=== PATIENT | male | born 1995 | race Caucasian/White ===

== ENCOUNTER 2017-06-28 10:18 | Emergency (ER) | payer SELFPAY ==
[2017-06-28 10:19] VITALS: BP 149/92; PULSE 90; RESP 18; TEMP 36.4; O2SAT 99; BMI 32.1
[2017-06-28] MEDS: Tetracaine 0.5% Ophthalmic Bottle 1 DRP LEFT EYE (10:41)
--- NOTE | 2017-06-28 10:43 | ED.DCSUM_ITS ---
- ER Visit Summary Date of Service: 06/28/17 Chief Complaint: [Foreign body sensation left eye] History of Present Illness: The patient is a 21 M [presents to the emergency department with complaint of possible foreign body sensation left eye. Patient states that while at work yesterday was given some pine straw out of the truck when he thinks he may have gotten something in his left eye. Patient irrigated the eye at home had a lot of discomfort and focal photophobia. Patient denies any headache. Patient does not want to file this under workman's comp.] Physical Examination: [HEENT-PERRLA, EOMI. Cranial nerves II through XII grossly intact. TMs clear. Mucous membranes moist. No adenopathy. Patient does have some conjunctival erythema of the left eye. I everted both eyelids and no foreign bodies were noted. I do not have floor seen available in the emergency department therefore could not evaluate for corneal abrasion. Anterior chamber was normal. Cardiovascular-regular rate and rhythm without murmur or ectopy Lungs-clear to auscultation, chest wall stable without crepitus or subcu emphysema Abdomen-normoactive bowel sounds, soft, nontender, no rebound or rigidity, no peritoneal signs. Extremities-intact ?4, normal range of motion, normal pulses, atraumatic] Test Results: [None indicated] Emergency Department Course and Treatment: [Patient had tetracaine placed in the left eye and gentamicin ophthalmic drops.] Treatment Plan: [Case was discussed with Dr. Martinez who will see patient in the office this afternoon.] Disposition: [Discharged home in stable condition] Impression: [Foreign body sensation left eye] This note was generated with [employer] dictation software. It may contain incorrect words, spelling, and punctuation that were not noted in review of the chart prior to signing ED Disposition - Plan for ED Patient: Chief Complaint: Eye Problem Referrals: Velasquez Zavala MD [Primary Care Provider] -
--- NOTE | 2017-06-28 10:44 | ED.DEP ---
ED Disposition - Plan for ED Patient: Chief Complaint: Eye Problem Instructions: ED Eye Injury Corneal Abrasion Referrals: Velasquez Zavala MD [Primary Care Provider] - Ko Martinez MD [STAFF PHYSICIAN] - 1 Day
--- NOTE | 2017-06-28 10:56 | ED.RN ---
1030-Patient states injury to eye happened while at work but declines to file Workman's Compensation.
[2017-06-28] MEDS: Gentamicin Sulfate 1 OPTH.BTL 2 DRP LEFT EYE (11:03)
== END 2017-06-28 11:08 | disposition home or self-care (01) ==
PROVIDERS: Emergency Provider Emergency Medicine; Family Provider Family Medicine; PCP Family Medicine
DX: R20.8 Other disturbances of skin sensation (principal); J45.909 Unspecified asthma, uncomplicated; Z72.0 Tobacco use
CPT/HCPCS: 99283

== ENCOUNTER 2017-08-08 20:53 | Emergency (ER) | payer SELFPAY ==
[2017-08-08 20:55] VITALS: BP 154/84; PULSE 96; RESP 18; TEMP 36.1; O2SAT 98; BMI 35.7
--- NOTE | 2017-08-08 21:35 | RAD_ITS ---
STUDY: X-RAY - RIGHT FOOT CLINICAL: Male, 21 years old. Pain TECHNIQUE: 3 view(s) of the foot. COMPARISON: None. FINDINGS: Normal talus, calcaneus, and tarsal bones. Normal visualized subtalar, talonavicular, calcaneocuboid, tarsal and tarsometatarsal articulations. Normal metatarsi. Normal metatarsophalangeal joint of the great toe. Normal tibial and fibular sesamoid bones. Normal interphalangeal joint of the great toe. Normal phalanges of the great toe. Normal second through fifth metatarsophalangeal joints. Normal interphalangeal joints and phalanges of the lesser toes. The soft tissue structures are unremarkable. RAD/Foot min 3 Views IMPRESSION: Normal x-ray examination of the foot. Electronically Signed: Francisco Javier Raymond MD at 21:49 EDT Tel , Service support ,
--- NOTE | 2017-08-08 22:57 | ED.DCSUM_ITS ---
- ER Visit Summary Date of Service: 08/08/17 Chief Complaint: Right foot pain History of Present Illness: The patient is a 21 M who has a history of sleep apnea asthma and fibromyalgia. He states that about 1-1-1/2 weeks ago began have pain on the dorsum of his right foot. States he has tried elevating it icing it using Epson salt. States has been taking ibuprofen and naproxen. States now this is helped his pain. Notes pain when he pulls his toes back towards his head. He notes no swelling or redness. No known trauma. Physical Examination: Afebrile vital signs are stable Gen: Well-nourished well-developed Head: Normocephalic atraumatic Eyes: Perrl EOMI ENT: TMs clear no rhinorrhea moist mucous membranes Neck: Supple no lymphadenopathy no JVD nontender CVS: Regular rate rhythm no murmurs normal S1-S2 Respiratory: No distress clear to auscultation bilaterally chest nontender Abdomen: Soft nontender nondistended normal bowel sounds no masses Back: Nontender Extremity: Tender to palpation over the dorsum of the right foot. There is no redness. No swelling. No bruising. Skin: Normal color no rash Neuro: alert orientated ?3 CN II-XII intact normal strength sensation reflexes gait cerebellar Psych: Normal affect normal mood Test Results: X-rays were negative. Emergency Department Course and Treatment: The patient will use an Lukas wrap. We will treat with ibuprofen and prednisone. See follow-up either with his primary care doctor or with podiatry Impression: 1. Right foot tendinitis This note was generated with [employer] dictation software. It may contain incorrect words, spelling, and punctuation that were not noted in review of the chart prior to signing ED Disposition - Plan for ED Patient: Disposition: Home or Assisted Living Chief Complaint: Lower Extremity Injury Instructions: What Is Tendinitis of the Foot? Prescriptions: Ibuprofen [Motrin] 800 mg PO TID PRN PRN #20 tab PRN Reason: Pain Prednisone [Deltasone] 60 mg PO DAILY #12 tab Referrals: Velasquez Zavala MD [Primary Care Provider] - 3-5 Days if not improving Sukhi Lay DPM [STAFF PHYSICIAN] - 3-5 Days
[2017-08-08 23:25] LABS: Bedside Glucose 86 mg/dL (70-110)
[2017-08-08] MEDS: predniSONE 20 MG Tablet 60 MG PO (23:28)
[2017-08-08 23:29] VITALS: BP 131/83; PULSE 83; RESP 16; O2SAT 96
== END 2017-08-08 23:29 | disposition home or self-care (01) ==
PROVIDERS: Emergency Provider Emergency Medicine; Family Provider Family Medicine; PCP Family Medicine
DX: M77.51 Other enthesopathy of right foot and ankle (principal); J45.909 Unspecified asthma, uncomplicated; M79.7 Fibromyalgia; G47.30 Sleep apnea, unspecified
CPT/HCPCS: 73630; 82962; 99282

== ENCOUNTER 2017-09-10 12:17 | Emergency (ER) | payer SELFPAY ==
--- NOTE | 2017-09-10 12:17 | DT_ITS ---
This patient was seen during an EMR downtime September 05, 2017 - September 12, 2017. This patient may have a combination of paper and electronic documentation or all paper documentation. All documentation is viewable within the e-chart portion of [employer] for each patient visit.
--- NOTE | 2017-09-10 13:28 | CT_ITS ---
STUDY: CT ABDOMEN AND PELVIS WITHOUT CONTRAST REASON FOR EXAM: Male, 21 years old. Left lower quadrant and testicular pain RADIATION DOSAGE (If Supplied By Facility): CTDIvol = ( 19.40 ) mGy, DLP = ( 1373.20 ) mGycm TECHNIQUE: Transaxial images were obtained from the dome of the diaphragm to the symphysis pubis without oral contrast, and without intravenous contrast. Sagittal and coronal images were reconstructed. Individualized dose optimization techniques were used for this CT. COMPARISON: None. FINDINGS: Lung bases demonstrate no evidence for consolidative process. Liver appears unremarkable. Spleen measures approximately 13 cm in craniocaudal dimension suggestive of mild splenomegaly. Gallbladder is nondistended. Fatty infiltration of the pancreas. The adrenal glands appear unremarkable. Kidneys demonstrate no evidence for hydronephrosis. The bowel gas pattern is nonobstructive. No evidence for retroperitoneal or mesenteric adenopathy. No definite evidence for acute appendicitis. A few prominent lymph nodes in the right lower quadrant seen. Fecal loading of the colonic loops. No free air within the peritoneal cavity. No free fluid in the pelvis. Osseous structures demonstrate no evidence for acute fractures. No lytic or blastic lesions. Schmorl's nodes in the thoracic and lumbar spine. IMPRESSION: No evidence for obstructive uropathy. No evidence for acute appendicitis. No evidence for acute diverticulitis. No evidence for small bowel obstruction. Mild splenomegaly Electronically Signed: Jose Horan, at 13:57 EDT Tel , Service support , CT/Abdomen/Pelvis without Cont
--- NOTE | 2017-09-10 13:50 | US_ITS ---
STUDY: SCROTUM ULTRASOUND REASON FOR EXAM: Male, 21 years old. Pain. TECHNIQUE: Ultrasound evaluation of the scrotum was performed with color Doppler and static avila-scale imaging. COMPARISON: None. FINDINGS: RIGHT TESTICLE INTRATESTICULAR: There is a normal size of the right testicle. The right testicle measures 3.9 x 3.1 x 2.1 cm. There is a homogenous echotexture. There is normal arterial and normal venous vascularity. There is no demonstrated right testicular mass or cyst. EXTRATESTICULAR: The epididymis is normal in size. The epididymis head measures 1.2 cm. There is normal vascularity of the epididymis. There is no demonstrated epididymal cystic structure. There is no demonstrated hydrocele. There is no demonstrated varicocele. There is no demonstrated extratesticular mass or cyst. LEFT TESTICLE INTRATESTICULAR: There is a normal size of the left testicle. The left testicle measures 2.8 x 4.1 x 2.2 cm. There is a homogenous echotexture. There is normal arterial and normal venous vascularity. There is no demonstrated left testicular mass or cyst. EXTRATESTICULAR: The epididymis is enlarged. The epididymis head measures 2.0 cm. There is normal vascularity of the epididymis. There is no demonstrated epididymal cystic structure. There is no demonstrated hydrocele. There are prominent extratesticular veins consistent with a varicocele. There is no demonstrated extratesticular mass or cyst. US/Testicular with Arterial Flow IMPRESSION: Normal bilateral testicles. Mildly enlarged left epididymis which is otherwise negative. Small left varicocele. Electronically Signed: Carlos Eduardo Houser MD at 14:24 EDT , Service support ,
[2017-09-13 06:49] LABS: Bacteria 0 SEEN /hpf (None Seen); Mucous, Urine 0 SEEN /hpf (<or=2+); Red Blood Cells-Urine 0 SEEN /hpf (0-5); Squamous Epithelial Cells - UA 0 SEEN /hpf (0-5); White Blood Cells 0 SEEN /hpf (0-5)
[2017-09-13 07:14] LABS: Color, Urine Yellow (Yellow); Glucose, Dipstick NEGATIVE (Normal); Ketone-Dipstick Negative (Negative); Leukocyte Esterase-Dipstick Negative /ul (Negative); Nitrite-Dipstick Negative (Negative); Occult Blood-Urine 10 /ul (Negative); Protein-Dipstick Negative (Negative); Urine Bilirubin Dipstick Negative (Negative); Urine Clarity Clear (Clear); Urine Urobilinogen Normal (Normal)
[2017-09-13 09:39] LABS: Anion Gap 6 (5-15); BUN 14 mg/dL (7-18); BUN/Creat Ratio 14.3 RATIO (10-20); Calcium,Total 8.9 mg/dL (8.5-10.1); Chloride 102 mmol/L (98-107); Creatinine, Serum 0.98 mg/dL (0.70-1.30); EST Glomerular Filtration Rate 101 mL/min (>60); Est Glom Filt Rate - Afr Amer 122 mL/min (>60); Glucose 115 mg/dL (74-106); Potassium 4.1 mmol/L (3.5-5.1); Sodium Level 139 mmol/L (136-145)
[2017-09-13 21:13] LABS: Hematocrit 46.3 % (40-54); Hemoglobin 16.3 g/dl (13.0-16.5); Mean Corp Hgb Conc 35.2 g/gl (32-36); Mean Corpuscular Hgb 28.7 pg (27.0-32.0); Mean Corpuscular Volume 81.7 fL (80-94); RBC Distribution Width CV 12.6 % (11.6-14.6); RBC Distribution Width SD 37.3 fl (35.1-43.9); Red Blood Count 5.67 M/mm3 (4.6-6.2); White Blood Count 6.4 K/mm3 (4.4-11.0)
[2017-09-13 21:14] LABS: Absolute Lymphocyte Count 1.27 X10^3/ul (0.83-4.51); Absolute Neutrophil Count 4.5 X10^3/uL (2.0-7.7); Basophil# 0.01 X10^3/uL; Basophil% 0.2 % (0-1); Eosinophil# 0.06 X10^3/uL; Eosinophils% 0.9 % (0-5); Lymphocyte # 1.27 X10^3/ul (4.0); Mean Platelet Vol. 8.8 fl (6.2-12.0); Monocyte# 0.54 X10^3/uL; Monocyte% 8.5 % (0-10); Neutrophil # 4.48 X10^3/uL (2.7-7.7); Neutrophil % 70.4 % (47-70); POSITIVE COUNT NO; POSITIVE DIFFERENTIAL NO; POSITIVE MORPHOLOGY NO; Platelet Count 190 K/mm3 (150-450)
== END 2017-09-10 14:50 | disposition home or self-care (01) ==
LOC: ED 09-11 13:19
PROVIDERS: Emergency Provider Emergency Medicine; Family Provider Family Medicine; PCP Family Medicine
DX: N45.2 Orchitis (principal); J45.909 Unspecified asthma, uncomplicated
CPT/HCPCS: 36415; 74176; 76870; 80048; 81001; 85025; 93976; 96374; 96375; 99283; J2405

== ENCOUNTER 2018-09-29 13:57 | Emergency (ER) | payer BC, SELFPAY ==
[2018-09-29 13:58] VITALS: BP 128/83; PULSE 104; RESP 15; TEMP 36.7; O2SAT 98; BMI 35.8
[2018-09-29] MEDS: Ketorolac 60 MG/2 ML Vial IM (15:17)
--- NOTE | 2018-09-29 15:20 | RAD_ITS ---
STUDY: X-RAY - PELVIS AND LEFT HIP REASON FOR EXAM: Left hip pain while playing softball 2 days ago. TECHNIQUE: 2 views of the pelvis and hip. COMPARISON: None. FINDINGS: There is a small pelvic phlebolith. Normal bilateral iliac wings, sacroiliac joints and visualized sacrum. Normal bilateral superior and inferior pubic rami. Normal pubic symphysis. Normal bilateral ischial tuberosities. Normal visualized femoral head. Normal acetabulum. Normal hip joint. RAD/HIP, UNI W/ Pelvis 2-3 Views IMPRESSION: Normal x-ray examination of the pelvis and left hip. Electronically Signed: Rex Vyas MD at 15:45 EDT Tel , Service support ,
--- NOTE | 2018-09-29 17:03 | ED.DCSUM_ITS ---
- ER Visit Summary Date of Service: 09/29/18 Chief Complaint: Left hip pain History of Present Illness: The patient is a 22 M who presents with left hip pain that began while playing softball 2 days ago. Patient states he felt a pop while running. Patient states the pain is sharp. Patient states the pain is constant. Patient states the pain is worse with laying flat and with weightbearing. Patient denies any paresthesias or weakness. Patient states the pain does radiate down his leg. Patient denies any paresthesias or weakness. Patient denies any bowel or bladder changes. Physical Examination: Vital signs are stable. Patient is afebrile. Patient is in no acute distress. Musculoskeletal exam reveals tenderness over the posterior aspect of the left hip. There is no bony crepitance or step-off. Range of motion is limited in all motions of the left hip secondary to pain. Sensation was intact to light touch in all dermatomes of the lower extremities. Strength is 5/5 bilateral and lower extremities. There is no deformity noted. The remaining physical exam is within normal limits. Test Results: X-rays of the left hip were obtained. There is no acute fracture or dislocation. Emergency Department Course and Treatment: Patient was advised that this is most likely a muscular strain. Patient was given an injection of Toradol here. Patient was given a prescription for Naprosyn. Patient was instructed to use ice to the area. Patient was instructed to follow-up with his primary care physician in 5 to 7 days. Patient understood and was agreeable with the plan. All questions were answered. Disposition: Discharge home Impression: Muscle strain left hip This note was generated with [employer] dictation software. It may contain incorrect words, spelling, and punctuation that were not noted in review of the chart prior to signing ED Disposition - Plan for ED Patient: Disposition: Home or Assisted Living Diagnosis: Muscle strain of left hip Instructions: Hip Strain Prescriptions: Naproxen [Naprosyn] 500 mg PO BID PRN #20 tab Prescription Printed Referrals: Velasquez Zavala MD [Primary Care Provider] - 5-7 Days
== END 2018-09-29 17:27 | disposition home or self-care (01) ==
PROVIDERS: Emergency Provider Emergency Medicine; Family Provider Family Medicine; PCP Family Medicine
DX: S76.012A Strain of muscle, fascia and tendon of left hip, initial encounter (principal); Y93.64 Activity, baseball; X50.1XXA Overexertion from prolonged static or awkward postures, initial encounter; Y93.02 Activity, running; Y92.320 Baseball field as the place of occurrence of the external cause; Y99.8 Other external cause status; Z72.0 Tobacco use
CPT/HCPCS: 73502; 96372; 99282

== ENCOUNTER 2019-08-21 18:20 | Emergency (ER) | payer OTHER, SELFPAY ==
[2019-08-21 18:21] VITALS: BP 158/95; PULSE 92; RESP 18; TEMP 36.3; O2SAT 100; BMI 36.2
--- NOTE | 2019-08-21 18:32 | EKG12_ITS ---
Test Reason : CP Blood Pressure : / mmHG Vent. Rate : 079 BPM Atrial Rate : 079 BPM P-R Int : 170 ms QRS Dur : 092 ms QT Int : 374 ms P-R-T Axes : 027 029 041 degrees QTc Int : 428 ms Normal sinus rhythm Normal ECG Confirmed by BRI ZHOU, MAK ([id number]), metropolitan editor YADI PATRICK ([id number] on 08/28/2019 3:31:54 PM Referred By: KELYL Confirmed By:MAK GREGORY MD
--- NOTE | 2019-08-21 18:35 | ED.RN ---
no old ekgs in [facility]
[2019-08-21 18:52] VITALS: BP 158/95; PULSE 92; RESP 18; TEMP 36.3; O2SAT 100; O2SAT 99
--- NOTE | 2019-08-21 19:00 | RAD_ITS ---
STUDY: X-RAY CHEST REASON FOR EXAM: Male, 23 years old. chest pain and shortness of breath TECHNIQUE: Portable chest COMPARISON: None. FINDINGS: There are mild bilateral pulmonary opacities. There is no consolidation.. There is no demonstrated pleural abnormality. Normal size heart. Normal mediastinum and kirby. Normal visualized pulmonary arteries. Normal visualized aortic arch and descending thoracic aorta. Normal visualized thoracic spine. Normal visualized ribs, clavicles, and shoulders. There is no demonstrated abnormality of the visualized soft tissue structures of the upper abdomen. RAD/Chest 1 View (Portable) IMPRESSION: Mild bilateral pulmonary opacities, no consolidation, pneumonia cannot be excluded, including atypical viral pneumonia Electronically Signed: Glynn Barksdale, at 19:26 EDT Tel , Service support ,
[2019-08-21 19:05] LABS: Absolute Neutrophil Count 4.1 X10^3/uL (2.0-7.7); Basophil# 0.02 X10^3/uL; Basophil% 0.3 % (0-1); Eosinophil# 0.13 X10^3/uL; Eosinophils% 1.7 % (0-5); Hemoglobin 15.4 g/dL (13.0-16.5); Lymphocyte % 35.9 % (19-41); Mean Corp Hgb Conc 34.2 g/dL (32-36); Mean Corpuscular Hgb 28.2 pg (27.0-32.0); Mean Corpuscular Volume 82.4 fL (80-94); Mean Platelet Vol. 8.8 fl (6.2-12.0); Monocyte# 0.69 X10^3/uL; Monocyte% 8.8 % (0-10); NRBC Flagged by Analyzer 0 % (0-5); Neutrophil # 4.14 X10^3/uL (2.7-7.7); Platelet Count 235 K/mm3 (150-450); RBC Distribution Width CV 12.5 % (11.6-14.6); RBC Distribution Width SD 37.1 fl (35.1-43.9); Red Blood Count 5.46 M/mm3 (4.6-6.2); White Blood Count 7.8 K/mm3 (4.4-11.0)
[2019-08-21 19:22] LABS: Anion Gap 6 (5-15); BUN 15 mg/dL (7-18); BUN/Creat Ratio 16.8 RATIO (10-20); Calcium,Total 9.2 mg/dL (8.5-10.1); Chloride 104 mmol/L (98-107); Creatinine, Serum 0.89 mg/dL (0.70-1.30); EST Glomerular Filtration Rate 110 mL/min (>60); Est Glom Filt Rate - Afr Amer 133 mL/min (>60); Estimated Creatinine Clearance 135.14 ml/min; Glucose 86 mg/dL (74-106); Potassium 3.8 mmol/L (3.5-5.1); Sodium Level 140 mmol/L (136-145)
--- NOTE | 2019-08-21 19:57 | ED.VISSUMM ---
- ER Visit Summary Date of Service: 08/21/19 Chief Complaint: Chest pain History of Present Illness: The patient is a 23 M with chest pain for several days. The pain is sharp and frontal. It radiates to both sides. Denies any other associated symptoms. History of fibromyalgia and possibly rheumatoid arthritis. No recent illnesses, fevers, cough, sputum. Physical Examination: Afebrile and vital signs unremarkable except for blood pressure of 158/95. Heart regular. Lungs clear. Extremities nontender with no edema. Skin appears normal. Test Results: EKG shows sinus rhythm at a rate of 79. No sign of acute ischemia or infarction pattern. CBC normal. BMP normal. Troponin normal. Chest x-ray reviewed by me was unremarkable. Radiology could not rule out atypical viral pneumonia. Emergency Department Course and Treatment: Patient's work-up was unremarkable. He is PERC negative. No risk factors for coronary disease or dissection. This is not consistent with COVID-19 infection. I believe this was an over read. I discussed this with the patient. Even if he does have COVID-19, he is low risk and his work-up is reassuring. He will monitor for symptoms and continue to use precautions at home. He was treated with ibuprofen for pain and will follow-up with his primary doctor. Treatment Plan: As above Disposition: Discharge Impression: Chest wall pain This note was generated with [employer] dictation software. It may contain incorrect words, spelling, and punctuation that were not noted in review of the chart prior to signing ED Disposition - Plan for ED Patient: Referrals: Velasquez Zavala MD [Primary Care Provider] -
[2019-08-21 19:59] VITALS: BP 142/92; PULSE 79; RESP 18; TEMP 36.8; O2SAT 98
--- NOTE | 2019-08-21 19:59 | ED.DEP ---
ED Disposition - Plan for ED Patient: Instructions: ED Chest Pain Atypical Unkn Cause Prescriptions: Ibuprofen [Motrin] 800 mg PO TID PRN PRN #20 tab PRN Reason: Pain Or Fever Prescription Printed Referrals: Velasquez Zavala MD [Primary Care Provider] -
[2019-08-21] MEDS: Ibuprofen 600 MG Tablet PO (20:06)
--- OUTSIDE RECORDS SUMMARY | 2020-01-15 13:59 | XMS RPT_ITS | CCD ---
:1995 External Reference #:[id number] Author Organization [facility] Care Team Providers Name Role Phone BUI, C Unavailable Unavailable BUI, C Unavailable Unavailable NO, ON Unavailable Unavailable BUI, C Unavailable Unavailable NO, ON Unavailable Unavailable Shahida Cordoba Primary Care Provider Allergies Reported Allergen Reaction(s) Severity Date of Onset Location acetylcarnitine [facility] Reposi tory amoxicillin / clavulanate [facility] Reposi tory Amoxicillin / Clavulanate Rash 01-14-2005 - [facility] ([id number]) cephalexin [facility] Reposi tory Cephalexin Rash 04-14-2006 - [facility] (59541) Medications Medication Name Sig Date Prescriber Location Citalopram citalopram (CELEXA) 05-02-2018 - Franco Pinedo [facility] 20 mg tablet 11-29-2019 ([id number]) Indications: Anxiety and depression Take 1 tablet by mouth once daily. 30 tablet 5 05/02/2018 11/29/2019 Discontinued Comment: Take 1 tablet by mouth once daily. CPAP CPAP Indications: LUIS ALBERTO 05-25-2018 Franco Cottrell [facility] (obstructive sleep apnea) ([id number]) Initiate Auto PAP @ 6-12 cm of water with humidification. Mask (per patient preference) optional chin strap (if indicated) , filters, tubing, humidifier and lifetime supplies. 1 Device 0 05/25/2018 Active CPAP Indications: LUIS ALBERTO 05-25-2018 Franco Cordoba [facility] ([id number]) (obstructive sleep apnea) Initiate Auto PAP @ 6-12 cm of water with humidification. Mask (per patient preference) optional chin strap (if indicated) , filters, tubing, humidifier and lifetime supplies. 1 Device 0 05/25/2018 Active CPAP Indications: LUIS ALBERTO [facility] (obstructive sleep apnea) Initiate Auto PAP @ 6-12 cm of water with humidification. Mask (per patient preference) optional chin strap (if indicated) , filters, tubing, humidifier and lifetime supplies. 1 Device 0 05/25/2018 Active CPAP Indications: LUIS ALBERTO [facility]-25-2018 [facility] ([address] (obstructive sleep apnea) Initiate Auto PAP @ 6-12 cm of water with humidification. Mask (per patient preference) optional chin strap (if indicated) , filters, tubing, humidifier and lifetime supplies. 1 Device 0 05/25/2018 Active Comment: Initiate Auto PAP @ 6-12 cm of water with humidification. Mask (per patient preference) optional chin st rap (if indicated) , filters, tubing, humidifier and lifetime supplies. levothyroxine levothyroxine 12-06-2019 Franco Mcfarland [facility] (SYNTHROID) 75 mcg Franco Mcfarland (441 [id number]) tablet Indications: Hypothyroidism, acquired Take 1 tablet by mouth once daily. Take on empty stomach. For Thyroid 30 tablet 11 12/06/2019 Active Comment: Take 1 tablet by mouth once daily. Take on empty stomach. For Thyroid meloxicam meloxicam (MOBIC) 15 05-02-2018 [facility] 11-29-2019 ([id number]) Indications: Chronic bilateral low back pain without sciatica , Tendonitis of foot Take 1 tablet by mouth once daily. Take with food. 30 tablet 5 05/02/2018 11/29/2019 Discontinued Comment: Take 1 tablet by mouth once daily. Take with food. 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 - [facility] conduct and disruptive conduct disorder ( 72017) behavior disorders Attention-deficit Attention-deficit Active 02-17-2006 - [facility] conduct and disruptive hyperactivity disorder, (15361) behavior disorders unspecified type Malaise and fatigue Fatigue Active [facility] (78355) Other connective Fibromyalgia Active [facility] linic tissue disease (66771) Other nutritional; Weight gain Active [facility] endocrine; and (28243) metabolic disorders Other upper Allergic rhinitis Active 12-07-2006 - [facility] respiratory disease (15879) Thyroid disorders Acquired hypothyroidism Active [facility] (46590) Past or Other Problems Category Problem Name Status Date Location Allergic reactions Contact dermatitis Completed 06-17-2008 - [facility] (37749) Headache; including Headache Completed 03-11-2008 - [facility] migraine (91537) Nonspecific chest pain Chest pain Completed 09-15-2007 - [facility] (87076) Other gastrointestinal Dysphagia Completed 07-03-2007 - [facility] disorders (52959) Other nervous system Abnormal gait Completed 08-22-2007 - [facility] disorders (47867) Other nervous system Disturbance in Completed 07-03-2007 - [facility] disorders speech (76933) Residual codes; Disturbance in sleep Completed 08-11-2007 - [facility] unclassified behavior (71566) Spondylosis; Chronic low back Completed 01-08-2008 - [facility] linic intervertebral disc pain (36234) disorders; other back problems Results Result Name Value Range Unit Interpretation Flag Date Location [facility] 2019-12-05 [facility] Telephone (FAMPWS) Normal 12-05-2019 [place] [facility] KO DOLL ([id number]) 1995 [facility] Date Time Provider Department ([id number]) 12/05/19 FRANCO CORDOBA FAMPWS During your visit today, we recorded the following informati on about you: Kitty Anderson RN 12/05/2019 12:28 PM Signed [facility] Asking pcp to rev iew and advise on abnormals. Reports he took thyroid medication when he was 14, then was told did not need it, and has not taken since then. Component Latest Ref Rng AND Units 12/04/2019 Protein, Total 6.3 - 8.0 g/dL 7.0 Albumin 3.9 - 4.9 g/dL 4.5 Calcium 8.5 - 10.2 mg/dL 9.5 Bilirubin, Total 0.2 - 1.3 mg/dL 0.3 Alkaline Phosphatase 38 - 113 U/L 55 AST 14 - 40 U/L 20 Glucose 74 - 99 mg/dL 107 (H) BUN 9 - 24 mg/dL 18 Creatinine 0.73 - 1.22 mg/dL 0.86 Sodium 136 - 144 mmol/L 140 Potassium 3.7 - 5.1 mmol/L 4.2 Chloride 97 - 105 mmol/L 102 CO2 22 - 30 mmol/L 29 Anion Gap 9 - 18 mmol/L 9 ALT 10 - 54 U/L 22 eGFR- >60 eGFR-All Other Races . >60 WBC 3.70 - 11.00 k/uL 5.88 RBC 4.20 - 6.00 m/uL 5.69 Hemoglobin 13.0 - 17.0 g/dL 16.2 Hematocrit 39.0 - 51.0 % 46.1 MCV 80.0 - 100.0 fL 81.0 MCH 26.0 - 34.0 pG 28.5 MCHC 30.5 - 36.0 g/dL 35.1 RDW-CV 11.5 - 15.0 % 12.5 Platelet Count 150 - 400 k/uL 204 MPV 9.0 - 12.7 fL 8.6 (L) Absolute nRBC <0.01 k/uL <0.01 Hemoglobin A1C 4.3 - 5.6 % 5.2 Estimated Average Glucose mg/dL 103 TSH 0.270 - 4.200 uU/mL 5.040 (H) Franco Cordoba MD 12/06/2019 9:14 AM Signed His TSH is slightly high, so I think he would benefit from being on thyroid medicine at this point; everything else looked fine - his glucose was slightly high, but his A1c was normal, so I think his blood sug ars have been fine. Rx done for Synthroid; recheck in 3 months with labs and offi ce/virtual visit. MD Elaine Pereyra MA 12/06/2019 10:55 AM Signed Tried calling pt, but unable to LM due to VM being full. Sent Email Data Sourcet message with sohan foley info below. Notified pt that Rx for Levothyroxine has been sent to [facility]. Asked pt if he'd like to com plete a VV or in office in 3 months and to schedule lab appt. Elaine Hu MA Allergies As of Date: 12/05/2019 Noted Allergy Reaction AUGMENTIN (AMOXICILLIN-POT CLAVUL*01/14/2005 2 - Rash KEFLEX (CEPHALEXIN) 04/14/2006 2 - Rash Date Reviewed: 11/29/2019 Reviewed by: Elaine Hu MA - Fully Assessed Reason for Visit: Results [95] Primary Visit Diagnosis:Hypothyroidism, acquired [E03.9] Order(s):levothyroxine (SYNTHROID) 75 mcg tabletTake 1 tab let by mouth once daily. Take on empty stomach. For ThyroidDisp: 30 tabletRfl: 11 TSH (FOR REMOTE [facility] USE) [SQRTSH] Order #: [id number] FUTURE T4 FREE/FREE THYROX [SQFT4] Order #: [id number] FUTURE Prescriptions as of 12/05/2019 Sig: LEVOTHYROXINE 75 MCG TABLET Take 1 tablet by mouth once d* CPAP Initiate Auto PAP @ 6-12 cm o* Problem List As Of Date 12/05/2019 Noted Resolved ATTN DEFICIT W HYPERACT [F90.9] 02/17/2006 SLEEP DISTURBANCES [780.5] 04/14/2006 08/11/2007 ALLERGIC RHINITIS NOS [J30.9] 12/07/2006 DYSPHAGIA [787.2] 07/03/2007 SPEECH DISTURBANCE NEC [784.5] 07/03/2007 Sleep disturbance, unspecified [G47.9] 08/11/2007 More... ABNORMALITY OF GAIT [R26.9] 08/22/2007 UNSOCIAL AGGRESS-UNSPEC [F91.1] 09/15/2007 CHEST PAIN NOS [R07.9] 09/15/2007 PAIN NECK [M54.2] 01/08/2008 HEADACHE [R51] 03/11/2008 DERMATITIS NOS [L25.9] 06/17/2008 Asthma [J45.909] 11/13/2009 Fibromyalgia [M79.7] More... Chronic bilateral low back pain without sciatic*09/25/2015 Prescriptions ordered this encounter Disp Refills Start End LEVOTHYROXINE 75 MCG TABLET 30 t* 11 12/06/2019 Route: ORAL Sig: Take 1 tablet by mouth once daily. Take on empty stomac h. For Thyroid Encounter Status:Closed by ELAINE HU MA on 12/06/19 tsh on 2019-12-04 TSH Qn 5.040 0.270-4.200 uU/mL High 12-04-2019 [facility] ([id number]) Comment: Performed By: #### TSH, HBA1 C ####[address] [phone] hemoglobin a1c on 2 HbA1c (Bld) [Mass fraction] 5.2 4.3-5.6 % Normal [facility] (26004) Comment: Result Comment: [place] Yodit betes Association guidelines indicate that patients with HgbA1c in the range 5.7-6.4% are at increased risk for development of diabetes, and intervention by lifestyle modification may be beneficial. HgbA1c greater o r equal to 6.5% is considered diagnostic of diabetes. Performed By: #### TSH, HBA1 C ####[address] [phone] HbA1c (Bld) [Mass fraction] 103 mg/dL Normal [facility] (57628) Comment: Result Comment: eAG: (Estima aubrey average glucose) is a calculated value from HgbA1c and is client relations representative of the average blood glucose level in the last 2-3 month period. Performed By: #### TSH, HBA1 C ####[address] [phone] comp metabolic panel on 2019-12-04 Albumin [Mass/Vol] 4.5 3.9-4.9 g/dL Normal 12-04-2019 [facility] (66371) ALP [Catalytic 55 38-113 U/L Normal 12-04-2019 [facility] activity/Vol] [place] and (40650) ALT [Catalytic 22 10-54 U/L Normal 12-04-2019 [facility] activity/Vol] Clevel and (40513) Anion gap 9 9-18 mmol/L Normal 12-04-2019 [facility] [Moles/Vol] [place] d (02897) AST [Catalytic 20 14-40 U/L Normal 12-04-2019 [facility] activity/Vol] [place] and (46385) Bilirubin [Mass/Vol] 0.3 0.2-1.3 mg/dL Normal 0 [facility] (51852) Calcium [Mass/Vol] 9.5 8.5-10.2 mg/dL Normal 12-04-2019 [facility] (01611) Chloride [Moles/Vol] 102 97-105 mmol/L Normal 0 [facility] (55990) CO2 [Moles/Vol] 29 22-30 mmol/L Normal 12-04-2019 [facility] (16825) Creatinine 0.86 0.73-1.22 mg/dL Normal 12-04-2019 [facility] [Mass/Vol] [place] (13051) eGFR- Amer. >60 Normal 12-04-2019 [facility] (53749) GFR/1.73 sq M >60 mL/min/{1.73_m Normal 12-04-2019 [facility] predicted among 2} [facility] (82933) non-blacks MDRD (S/P/Bld) [Vol rate/Area] Comment: Result Comment: eGFR (Estima aubrey GFR) Units of measure: mL/min/1.73 meters squared eGFR is derived from the ree xpressed MDRD Study equation using the following parameters: serum creatinine, age, gender and race. The creatinine assay has been calibrated to be traceable to IDMS. An eGFR <60 mL/min/1.73m2 fo r >3 months is consistent with chronic kidney disease. Refer to KDOQI guidelines for clinical interpretation. In patients with unstable re nal function, e.g. those with acute kidney injury, the eGFR may not accurately reflect actual GFR. Glucose [Mass/Vol] 107 74-99 mg/dL High 12-04-2019 [facility] (27905) Comment: Result Comment: The [place] Diabetes Association (ADA) provides guidance for cutoff values for fasting glucose and random glucose. The ADA defines fasting as no caloric intake for at least 8 hours. Fas ting plasma glucose results between 100 to 125 mg/dL indicate increased risk for diabetes (prediabetes). Fasting plasma glucose resul ts greater than or equal to 126 mg/dL meet the criteria for diagnosis of diabetes. In the absence of unequivocal hyperglycemia, results should be confirmed by repeat testing. In a patient with classic s ymptoms of hyperglycemia or hyperglycemic crisis, random plasma glucose results greater than or equal to 200 mg/dL meet the criteria for diagnosis of diabetes. Reference: Standards of [facility] Care in Diabetes 2016, [place] Diabetes Association. Diabetes Care. 2016.39(Suppl 1). Potassium [Moles/Vol] 4.2 3.7-5.1 mmol/L Normal 12-04-19 20 [facility] (31194) Protein [Mass/Vol] 7.0 6.3-8.0 g/dL Normal 12-04-2019 [facility] (69885) Sodium [Moles/Vol] 140 136-144 mmol/L Normal 12-04-2019 [facility] (58177) Urea nitrogen [Mass/Vol] 18 9-24 mg/dL Normal 12-03 [facility] (75502) cnpn on 2019-12-04 CNPN Telephone (AGSPHWG) Normal 12-04-2019 [place] ( ) 1995 Medical Date Time Provider Department Center 12/04/19 SAMEER CUELLO AGSPHWG (36303) During your visit today, we recorded the following informati on about you: Marta Daugherty 12/04/2019 10:30 AM Signed TRIED TO REACH OUT TO PATIENT TO ATIF Manzo WITH DR. CUELLO A NEW PATIENT IN [place] AND ANSWER NEW PATIE NT QUESTIONS. AT THIS TIME THE MAIL BOX IS FULL AND UNABLE TO LEAVE MESSAGE. Marta Daugherty Allergies As of Date: 12/04/2019 Noted Allergy Reaction AUGMENTIN (AMOXICILLIN-POT CLAVUL*01/14/2005 2 - Rash KEFLEX (CEPHALEXIN) 04/14/2006 2 - Rash Date Reviewed: 11/29/2019 Reviewed by: Elaine Hu MA - Fully Assessed Reason for Visit: New Patient [172] Cmt: OTILIA Prescriptions as of 12/04/2019 Sig: CPAP Initiate Auto PAP @ 6-12 cm o* Problem List As Of Date 12/04/2019 Noted Resolved ATTN DEFICIT W HYPERACT [F90.9] 02/17/2006 SLEEP DISTURBANCES [780.5] 04/14/2006 08/11/2007 ALLERGIC RHINITIS NOS [J30.9] 12/07/2006 DYSPHAGIA [787.2] 07/03/2007 SPEECH DISTURBANCE NEC [784.5] 07/03/2007 Sleep disturbance, unspecified [G47.9] 08/11/2007 More... ABNORMALITY OF GAIT [R26.9] 08/22/2007 UNSOCIAL AGGRESS-UNSPEC [F91.1] 09/15/2007 CHEST PAIN NOS [R07.9] 09/15/2007 PAIN NECK [M54.2] 01/08/2008 HEADACHE [R51] 03/11/2008 DERMATITIS NOS [L25.9] 06/17/2008 Asthma [J45.909] 11/13/2009 Fibromyalgia [M79.7] More... Chronic bilateral low back pain without sciatic*09/25/2015 Encounter Status:Closed by MARTA DAUGHERTY on 12/04/19 cbc on 2019-12-04 Absolute nRBC <0.01 <0.01 Normal 12-04-2019 [facility] (74562) Erythrocyte distribution 12.5 11.5-15.0 % Normal 12-03 [facility] width (RBC) [Ratio] [place] (94378) Hematocrit (Bld) [Volume 46.1 39.0-51.0 % Normal 12-03 [facility] fraction] [place] (05803) Hemoglobin (Bld) 16.2 13.0-17.0 g/dL Normal 12-04-2019 [facility] [Mass/Vol] [place] (39882) MCH (RBC) [Entitic mass] 28.5 26.0-34.0 pG Normal 12-03 [facility] (70346) MCHC (RBC) [Mass/Vol] 35.1 30.5-36.0 g/dL Normal 12-04-19 [facility] (16336) MCV (RBC) [Entitic vol] 81.0 80.0-100.0 fL Normal 12-03 [facility] (63196) Platelet mean volume 8.6 9.0-12.7 fL Low 0 [facility] (Bld) [Entitic vol] [place] (75385) Platelets (Bld) [#/Vol] 204 150-400 k/uL Normal 2019 [facility] (29645) RBC (Bld) [#/Vol] 5.69 4.20-6.00 m/uL Normal 12-04-2019 [facility] (08794) WBC (Bld) [#/Vol] 5.88 3.70-11.00 k/uL Normal 12-04-2019 [facility] (55182) progress on 2019-11 PROGRESS HNO ID: [id number] Normal 11-29-2019 [facility] Author: Franco Cordoba [place] ([id number]) Service: ? Author Type: Physician Type: Progress Notes Filed: 11/29/2019 5:24 PM Note Text: This Team Access Model visit is a phone encounter. It requir ed patient-provider interaction for the medical decision making as documented below. Chief Complaint Patient presents with: Fatigue HPI: This Team Access Model visit is a virtual/phone encount er. It required patient-provider interaction for the medical decisi on making as documented below. Patient was offered a virtual/telemedicine appointment in lieu of an office visit due to recommendations to reduce patient exposure to COVID-19. Patient is aware of limitations of per forming the visit without a face to face visit in the office setting and agrees. Fatigue - Ongoing for the last 3 weeks. Reports he drinking pop and also cut out all caffeine over the last 3 weeks. Denies any heada ches or migraines but feels less motivated to do anything after stop ping caffeine. Wonders if this due to not drinking any caffeine. He also no chintan that he's gained 30 lbs in the last 3 weeks. If he is hurrying trying to do something it causes him to have dizzy spells and has feels h e shakes all the time. Chronic pain - Reports ongoing chest, rib and belly pain, th at has been ongoing for years. Described as a shooting pain that occurs daily. Pain today a 5-6/10. LUIS ALBERTO - Wears CPAP, but admits to not using regularly. Admits to not wearing during the weekend due to tent camping. DARCI/Depression - Reports that he stopped taking it, has been off medication for the last 6 months. Feels like the Celexa 20 m g once daily didn't help. Chiropractor also recommended that he discuss his back. Ongo ing chronic back pain that he can't get to stop or get himself comfortab le. Pt reports possibly the area of L2-L3. Past medical history, appointments, medications, allergies r eviewed. 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, chronic neck pain - Fibromyalgia [facility] - Obesity - SLEEP DISTURBANCE NOS Previous Surgical History PAST SURGICAL HISTORY Procedure Laterality Date - INCISION EARDRUM,ASPIR,GEN ANESTH Myringotomy/tubes - REMOVAL ADENOIDS,PRIMARY,<12 Y/O Adenoidectomy Family History FAMILY HISTORY Problem Relation Age of Onset - COPD Mother - Cancer Maternal Grandmother small cell lung, smoker - Cancer Maternal Grandfather lymphoma Patient Allergies ALLERGIES Allergen Reactions - Augmentin [Amoxicil* Rash - Keflex [Cephalexin] Rash Current Medications Current Outpatient Medications on File Prior to Visit Medication Sig - CPAP Initiate Auto PAP @ 6-12 cm of water with humidificat ion. Mask (per patient preference) optional chin strap (if indicated) , braulio ters, tubing, humidifier and lifetime supplies. - citalopram (CELEXA) 20 mg tablet Take 1 tablet by mouth on ce daily. - meloxicam (MOBIC) 15 mg tablet Take 1 tablet by mouth once daily. Take with food. No current facility-administered medications on file prior t o visit. Social History Social History Tobacco Use - Smoking status: Former Smoker - Smokeless tobacco: Current User Types: Chew - Tobacco comment: smokes 1 pack every 3 months Substance Use Topics - Alcohol use: No Frequency: 4 or more times a week Drinks per session: 3 or 4 Binge frequency: Weekly - Drug use: No EXAM: There were no vitals taken for this visit. Health Maintenance List HPV VACCINE(1 - Male 2-dose series) due on 2004 SPIROMETRY due on 10/31/2011 HEPATITIS C SCREENING due on 10/31/2011 HIV SCREENING due on 10/31/2011 TWO PNEUMOVAX 5 YEARS APART PRIOR TO AGE 65(1) due on 2012 ADULT PREVNAR-13 due on 2012 INFLUENZA(1) due on 12/04/2019 ANNUAL PCP TEAM CHRONIC DISEASE VISIT due on 05/03/2020 DTAP,TDAP,TD(6 - Td) due on 06/24/2021 MENINGOCOCCAL CONJUGATE Completed Data reviewed None ASSESSMENT/PLAN: 1. Chronic midline low back pain, unspecified whether sciati ca present - ICD9: 724.2, 338.29, ICD10: M54.5, G89.29 (primary diagnosis ) Chronic low back pain Has not responded to home care scheduler with PT; will refer t o Pain Management for evaluation for injections - CONSULT TO PAIN MGT 2. Fatigue, unspecified type - ICD9: 780.79, ICD10: R53.83 - COMP METABOLIC PANEL - HGB A1C - CBC - TSH BLD 3. Weight gain - ICD9: 783.1, ICD10: R63.5 - COMP METABOLIC PANEL - HGB A1C - CBC - TSH BLD Notify of lab results and further action from there 11-20 minutes of time spent on phone call I agree with the Chief Complaint, ROS, and Past Histories in dependently gathered by the clinical sales support specialist and the remaining scr ibed note accurately describes my personal service to the patient. Franco Cordoba MD The documentation for this note was completed by Elaine teixeira MA acting as scribe for Franco Cordoba MD. November 29, 2019 4:15 PM. Eliane catalan on 2019-11-28 CNPN Telephone (FAMPWS) Normal 11-28-2019 [place] KO Bazan ([id number]) 1995 [place] Date Time Provider Department ([id number]) 11/28/19 FRANCO CORDOBA During your visit today, we recorded the following informati on about you: Maria A Tripp, RN, RN 11/28/2019 4:46 PM Signed Pt calls stating he quit drinking pop 3 weeks ago and since then has been fatigued and has no energy. States he was drinking 63 ounces per day. States he quit cold turkey and is not drinking water. States 30 lb weight increase. Maintained the same diet, possibly eating a little more. S tats taking Vit B Complex for energy. Exercise routine is the same. Schedule d phone call with PCP tomorrow. Pt states he will be leaving work and does not have VM setup yet. Pt states for PCP to call twice if he doesn 't crop picker the first time due to service. Franco Cordoba MD 11/29/2019 11:16 AM Signed Noted Franco Cordoba MD Allergies As of Date: 11/28/2019 Noted Allergy Reaction AUGMENTIN (AMOXICILLIN-POT CLAVUL*01/14/2005 2 - Rash KEFLEX (CEPHALEXIN) 04/14/2006 2 - Rash Date Reviewed: 05/03/2019 Reviewed by: Arabella Edmond LPN - Fully Assessed Reason for Visit: Fatigue [46] Prescriptions as of 11/28/2019 Sig: CPAP Initiate Auto PAP @ 6-12 cm o* CITALOPRAM 20 MG TABLET Take 1 tablet by mouth once d* MELOXICAM 15 MG TABLET Take 1 tablet by mouth once d* Problem List As Of Date 11/28/2019 Noted Resolved ATTN DEFICIT W HYPERACT [F90.9] 02/17/2006 SLEEP DISTURBANCES [780.5] 04/14/2006 08/11/2007 ALLERGIC RHINITIS NOS [J30.9] 12/07/2006 DYSPHAGIA [787.2] 07/03/2007 SPEECH DISTURBANCE NEC [784.5] 07/03/2007 Sleep disturbance, unspecified [G47.9] 08/11/2007 More... ABNORMALITY OF GAIT [R26.9] 08/22/2007 UNSOCIAL AGGRESS-UNSPEC [F91.1] 09/15/2007 CHEST PAIN NOS [R07.9] 09/15/2007 PAIN NECK [M54.2] 01/08/2008 HEADACHE [R51] 03/11/2008 DERMATITIS NOS [L25.9] 06/17/2008 Asthma [J45.909] 11/13/2009 Fibromyalgia [M79.7] More... Chronic bilateral low back pain without sciatic*09/25/2015 Encounter Status:Closed by FRANCO CORDOBA MD on 11/29/19 alayna on 2019-10-08 ALAYNA Telephone (FAMPWS) Normal 10-08-2019 [place] KO Bazan ([id number]) 1995 [facility] Date Time Provider Department ([id number]) 10/08/19 JENNIFRE CHASE) SUSAN During your visit today, we recorded the following informati on about you: Jennifer Chase APRN.CNP 10/08/2019 3:48 PM Signed Patient is scheduled to see me for reproduction questions? I don't have any specialty in this area. Recommend he discuss with some one who specializes in this area. Thanks, Jennifer Chase APRN.DEVAN Alva LPN, LPN 10/09/2019 3:36 PM Signed Mailbox is full , can not accept messages at thi s time. Will need to try back again. Elva Alva LPN, LPN 10/10/2019 10:28 AM Signed Spoke with pt he states he is wanting to know if he is able to have children. Thought there was just a test you could send him for. I explained would pass this by you and if we could not help him with that we coul d guide him in rt direction of who could. Jennifer Chase APRN.CNP 10/10/2019 10:46 AM Signed Has he been trying to have c ramona and can not or does he just want to know if he can? Jennifer Chase APRN.DEVAN Alva LPN, LPN 10/10/2019 10:55 AM Signed Ok Called him back he states they have been trying for 2 yea rs. Jennifer Addisonlogar, ROUTE RETURNER.WORKERS COMPENSATION ANALYST 10/10/2019 11:00 AM Signed I have placed consult for infertility. I would have him see them for this as I do not know all the testing they do for this. Thanks, Jennifer Addisonlogar, ROUTE RETURNER.DEVAN Alva, MIKA, JUNIOR BUSINESS ANALYST 10/10/2019 11:04 AM Signed Spoke with pt gave information provided. Pt states zac l check with insurance see who is on plan then will call us back and let us know where to fax consult. Allergies As of Date: 10/08/2019 Noted Allergy Reaction AUGMENTIN (AMOXICILLIN-POT CLAVUL*01/14/2005 2 - Rash KEFLEX (CEPHALEXIN) 04/14/2006 2 - Rash Date Reviewed: 05/03/2019 Reviewed by: Arabella Edmond LPN - Fully Assessed Reason for Visit: Appointment [186] Primary Visit Diagnosis:Infertility counseling [Z31.69] Order(s):CONSULT TO INFERTILITY CLINIC [[id number]] Order #: [id number]: 1 FUTURE Prescriptions as of 10/08/2019 Sig: CPAP Initiate Auto PAP @ 6-12 cm o* CITALOPRAM 20 MG TABLET Take 1 tablet by mouth once d* MELOXICAM 15 MG TABLET Take 1 tablet by mouth once d* Problem List As Of Date 10/08/2019 Noted Resolved ATTN DEFICIT W HYPERACT [F90.9] 02/17/2006 SLEEP DISTURBANCES [780.5] 04/14/2006 08/11/2007 ALLERGIC RHINITIS NOS [J30.9] 12/07/2006 DYSPHAGIA [787.2] 07/03/2007 SPEECH DISTURBANCE NEC [784.5] 07/03/2007 Sleep disturbance, unspecified [G47.9] 08/11/2007 More... ABNORMALITY OF GAIT [R26.9] 08/22/2007 UNSOCIAL AGGRESS-UNSPEC [F91.1] 09/15/2007 CHEST PAIN NOS [R07.9] 09/15/2007 PAIN NECK [M54.2] 01/08/2008 HEADACHE [R51] 03/11/2008 DERMATITIS NOS [L25.9] 06/17/2008 Asthma [J45.909] 11/13/2009 Fibromyalgia [M79.7] More... Chronic bilateral low back pain without sciatic*09/25/2015 Encounter Status:Closed by ELVA ALVA LPN on 10/10/19 [facility]npn [facility]08-[facility] Normal 08-20-2019 [place] KO Bazan ([id number]) 1995 [address] [place] Date Time Provider Department ([id number]) 08/20/19 FRANCO CORDOBA During your visit today, we recorded the following informati on about you: Melissa Parra LPN 08/20/2019 4:42 PM Signed Patient is calling for a letter to give to his employe r so he can get a face shield instead of a mask. He has asthma and this is giving him chest pains. Please let him know if you a re willing to do this and he will get a fax number. Melissa Hu MA 08/20/2019 4:50 PM Signed Please see message below. Elaine Parra LPN 08/21/2019 9:11 AM Signed Patient called in checking the status. Please advise patient . PH: [phone]. Melissa Cordoba MD 08/21/2019 10:53 AM Signed Letter done MD Elaine Pereyra MA 08/21/2019 10:57 AM Signed Called but unable to LM due to VM being full. Will try annalise ivy again later. Letter in PCP's office await call or when reach to see how pt wants to proceed. Elaine Parra LPN 08/21/2019 12:07 PM Signed Patient called back and he w raquel jackson faxed to [phone] [facility]. Melissa Hu MA 08/21/2019 12:32 PM Signed Letter has been faxed as requested to info below. Elaine Norman RN 08/21/2019 2:49 PM Signed Pt called, verified by name and birthdate. Pt wanted to know if letter was faxed. Reviewed below note and verified fax was sent and verified fax number. Pt verbalized understanding Latonia Norman RN Allergies As of Date: 08/20/2019 Noted Allergy Reaction AUGMENTIN (AMOXICILLIN-POT CLAVUL*01/14/2005 2 - Rash KEFLEX (CEPHALEXIN) 04/14/2006 2 - Rash Date Reviewed: 05/03/2019 Reviewed by: Arabella Edmond LPN - Fully Assessed Reason for Visit: letter [Other] Prescriptions as of 08/20/2019 Sig: CPAP Initiate Auto PAP @ 6-12 cm o* CITALOPRAM 20 MG TABLET Take 1 tablet by mouth once d* MELOXICAM 15 MG TABLET Take 1 tablet by mouth once d* Problem List As Of Date 08/20/2019 Noted Resolved ATTN DEFICIT W HYPERACT [F90.9] 02/17/2006 SLEEP DISTURBANCES [780.5] 04/14/2006 08/11/2007 ALLERGIC RHINITIS NOS [J30.9] 12/07/2006 DYSPHAGIA [787.2] 07/03/2007 SPEECH DISTURBANCE NEC [784.5] 07/03/2007 Sleep disturbance, unspecified [G47.9] 08/11/2007 More... ABNORMALITY OF GAIT [R26.9] 08/22/2007 UNSOCIAL AGGRESS-UNSPEC [F91.1] 09/15/2007 CHEST PAIN NOS [R07.9] 09/15/2007 PAIN NECK [M54.2] 01/08/2008 HEADACHE [R51] 03/11/2008 DERMATITIS NOS [L25.9] 06/17/2008 Asthma [J45.909] 11/13/2009 Fibromyalgia [M79.7] More... Chronic bilateral low back pain without sciatic*09/25/2015 Letter Text Encounter Status:Closed by ELAINE HU MA on 08/21/19 progress on 2019-04 PROGRESS HNO ID: [id number] Normal 05-03-2019 [facility] Author: Darshana Ramos) Luis Woodall ([id number]) Service: ? Author Type: Physician Import Export Agent Type: Progress Notes Filed: 05/03/2019 5:34 PM Note Text: Subjective HPI Patient presents with cough, congestion, fever and chills si nce yesterday. He does have a history of asthma. No wheezing or shortness o f breath. He had 2 contacts near him that had influenza B. He did not get a flu shot. He felt nauseated with no vomiting. No diarrhea or abd ominal pain. Review of Systems Constitutional: Positive for chills, fever and malaise/fatig ue. HENT: Positive for congestion and sore throat. Negative for ear pain. Eyes: Negative. Respiratory: Positive for cough. Negative for sputum product ion, shortness of breath and wheezing. Cardiovascular: Negative. Gastrointestinal: Negative. Genitourinary: Negative. Skin: Negative. All other systems reviewed and are negative. 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 Mask (per patient preference) optional chin strap (if indicated) , braulio ters, tubing, humidifier and lifetime supplies. 1 Device 0 - citalopram (CELEXA) 20 mg tablet Take 1 tablet by mouth on ce daily. 30 tablet 5 - meloxicam (MOBIC) 15 mg tablet Take 1 tablet by mouth once daily. Take with food. 30 tablet 5 - oseltamivir (TAMIFLU) 75 mg capsule Take 1 capsule by mout h twice daily for 5 days. 10 capsule 0 No current facility-administered medications for this visit. PAST SURGICAL HISTORY Procedure Laterality Date - INCISION EARDRUM,ASPIR,GEN ANESTH Myringotomy/tubes - REMOVAL ADENOIDS,PRIMARY,<12 Y/O Adenoidectomy FAMILY HISTORY Problem Relation Age of Onset - COPD Mother - Cancer Maternal Grandmother small cell lung, smoker - Cancer Maternal Grandfather lymphoma Social History Tobacco Use - Smoking status: Former Smoker - Smokeless tobacco: Current User Types: Chew - Tobacco comment: smokes 1 pack every 3 months Substance Use Topics - Alcohol use: No - Drug use: No BP 118/68 Pulse 95 Temp 36.9 ?C (98.5 ?F) Resp 18 Wt 109.3 kg (241 lb) SpO2 98% BMI 33.55 kg/m? Objective Physical Exam Constitutional: He is oriented to person, place, and time an d well-developed, well-nourished, and in no distress. HENT: Head: Normocephalic and atraumatic. Right Ear: Tympanic membrane, external ear and ear canal nor mal. Left Ear: Tympanic membrane, external ear and ear canal norm al. Nose: Rhinorrhea present. Mouth/Throat: Uvula is midline, oropharynx is clear and mois t and mucous membranes are normal. Cardiovascular: Normal rate, regular rhythm and normal heart sounds. Pulmonary/Chest: Effort normal and breath sounds normal. No respiratory distress. He has no wheezes. He has no rales. Neurological: He is alert and oriented to person, place, and time. Skin: Skin is warm and dry. No rash noted. Psychiatric: Affect and judgment normal. Nursing note and vitals reviewed. ASSESSMENT/PLAN: 1. Influenza B - ICD9: 487.1, ICD10: J10.1 (primary diagnosi s) Patient is influenza B is positive. He is in the window for Tamiflu. He does have a history of asthma and is a smoker. Given a presc ription. Discussed contagiousness of the flu. May use sxgr-oyv-hlqfew r cough cold medications as well as ibuprofen as needed. Follow-up if not improving over the next week. Patient is agreeable. 2. Cough - ICD9: 786.2, ICD10: R05 - INFLUENZA AANDB MOLECULAR (POC) Darshana Evangelista PA-C PROGRESS HNO ID: [id number] Normal 05-03-2019 [facility] Author: Semaj (Joseluis.Gravel Weigher) KILEY Feliciano.[facility] ([id number]) Service: ? Author Type: Nurse Practitioner Type: Progress Notes Filed: 05/03/2019 4:17 PM Note Text: Chief Complaint Patient presents with: Headache: X 3 days 8/10 HPI Ko Doll is a 23 year old male who presents here today for a several day history of nausea, vomiting, REED and diarrhea for a few d ays This is an established patient of Dr. Franco Cordoba MD. This is a new patient to me. Denies any recent urgent care visits, ER visi ts or hospitalizations. States a several day history of the above symptoms and daugh isha was noted to have tested positive for influenza B. Past medical history, appointments, medications, allergies r kmwed. 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, chronic neck pain - Fibromyalgia [facility] - Obesity - SLEEP DISTURBANCE NOS Previous Surgical History PAST SURGICAL HISTORY Procedure Laterality Date - INCISION EARDRUM,ASPIR,GEN ANESTH Myringotomy/tubes - REMOVAL ADENOIDS,PRIMARY,<12 Y/O Adenoidectomy Family History FAMILY HISTORY Problem Relation Age of Onset - COPD Mother - Cancer Maternal Grandmother small cell lung, smoker - Cancer Maternal Grandfather lymphoma Patient Allergies ALLERGIES Allergen Reactions - Augmentin [Amoxicil* Rash - Keflex [Cephalexin] Rash Current Medications Current Outpatient Medications on File Prior to Visit Medication Sig - CPAP Initiate Auto PAP @ 6-12 cm of water with humidificat ion. Mask (per patient preference) optional chin strap (if indicated) , braulio ters, tubing, humidifier and lifetime supplies. - citalopram (CELEXA) 20 mg tablet Take 1 tablet by mouth on ce daily. - meloxicam (MOBIC) 15 mg tablet Take 1 tablet by mouth once daily. Take with food. No current facility-administered medications on file prior t o visit. Social History Social History Tobacco Use - Smoking status: Former Smoker - Smokeless tobacco: Current User Types: Chew - Tobacco comment: smokes 1 pack every 3 months Substance Use Topics - Alcohol use: No - Drug use: No Review of Symptoms EXAM: BP 126/76 (BP Site: Right Arm, BP Position: Sitting, BP Cuff Size: Large Adult) Pulse 104 Temp 37.4 ?C (99.3 ?F) (Right Tympanic) Resp 14 Wt 109.8 kg (242 lb) SpO2 96% BMI 33.69 kg/m? Health Maintenance List TWO PNEUMOVAX 5 YEARS APART PRIOR TO AGE 65(1) due on 2012 ADULT PREVNAR-13 due on 2012 INFLUENZA(1) due on 12/03/2018 ANNUAL PCP TEAM CHRONIC DISEASE VISIT due on 06/30/2019 DTAP,TDAP,TD(6 - Td) due on 06/24/2021 HPV VACCINE Completed Data reviewed Last 5 Encounter BP Readings: Date: BP: 12/28/2018 122/86 08/02/2018 122/88 05/02/2018 120/74 02/22/2018 110/60 02/02/2018 112/74 BMI Readings from Last 5 Encounters: 05/03/19 : 33.69 kg/m? 12/28/18 : 33.30 kg/m? 08/02/18 : 34.95 kg/m? 06/29/18 : 35.64 kg/m? 05/13/18 : 34.93 kg/m? Last 5 Encounter Wt Readings: Date: Wt: 12/28/2018 108.5 kg (239 lb 3.2 oz) 08/02/2018 113.9 kg (251 lb) 06/29/2018 116.1 kg (256 lb) 05/02/2018 113.8 kg (250 lb 14.1 oz) 05/02/2018 117.9 kg (260 lb) Medication and allergy list reviewed, reconciled and updated . ASSESSMENT/PLAN: 1. Patient left without being seen - ICD9: V64.2, ICD10: Z53 .21 Patient left without being seen by provider. Semaj Feliciano DNP.WORKERS COMPENSATION ANALYST This note was completed with [employer] dictation software. Note was reviewed for accuracy. There may be minor misspellings or gr ammar miscues with [employer] Dictation. [place] [id number] cnov on 2019-05-03 CNOV Office Visit (UCWSTR) Normal 05-03-19 [place] KO Bazan ([id number]) 1995 [place] Date Time Provider Department ([id number]) 1/30/20 4:30 PM DARSHANA EVANGELISTA) [facility] During your visit today, we recorded the following informati on about you: Temperature Pulse Respiration Blood pressure 98.5 degrees 95/minute 18/minute 118/68 Weight 109.3 kg Darshana Evangelista PA-C 05/03/2019 5:34 PM Signed Subjective HPI Patient presents with cough, congestion, fever a nd chills since yesterday. He does have a history of asthma. No wheezing or shortness of breath. He had 2 contacts near him that had influenza B. He did not get a flu shot. He felt nauseated with no vomiting. No diarrhea or abdominal pain. Review of Systems Constitutional: Positive for chills, fever and malaise/fatig ue. HENT: Positive for congestion and sore throat. Negative for ear pain. Eyes: Negative. Respiratory: Positive for cough. Negative for sp utum production, shortness of breath and wheezing. Cardiovascular: Negative. Gastrointestinal: Negative. Genitourinary: Negative. Skin: Negative. All other systems reviewed and are negative. 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 Mask (per patient preference) optional chin strap (if indicated) , braulio ters, tubing, humidifier and lifetime supplies. 1 Device 0 - citalopram (CELEXA) 20 mg tablet Take 1 tablet by mouth once daily. 30 tablet 5 - meloxicam (MOBIC) 15 mg tablet Take 1 tablet b y mouth once daily. Take with food. 30 tablet 5 - oseltamivir (TAMIFLU) 75 m g capsule Take 1 capsule by mouth twice daily for 5 days. 10 capsule 0 No current facility-administered medications for this visit. PAST SURGICAL HISTORY Procedure Laterality Date - INCISION EARDRUM,ASPIR,GEN ANESTH Myringotomy/tubes - REMOVAL ADENOIDS,PRIMARY,<12 Y/O Adenoidectomy FAMILY HISTORY Problem Relation Age of Onset - COPD Mother - Cancer Maternal Grandmother small cell lung, smoker - Cancer Maternal Grandfather lymphoma Social History Tobacco Use - Smoking status: Former Smoker - Smokeless tobacco: Current User Types: Chew - Tobacco comment: smokes 1 pack every 3 months Substance Use Topics - Alcohol use: No - Drug use: No BP 118/68 Pulse 95 Temp 36.9 ?C (98.5 ?F) Resp 18 Wt 109.3 kg (241 lb) SpO2 98% BMI 33.55 kg/m? Objective Physical Exam Constitutional: He is oriented to person, place, and time and well-developed, well-nourished, and in no distress. HENT: Head: Normocephalic and atraumatic. Right Ear: Tympanic membrane, external ear and ear canal nor mal. Left Ear: Tympanic membrane, external ear and ear canal norm al. Nose: Rhinorrhea present. Mouth/Throat: Uvula is midline, oropharynx is clear and mois t and mucous membranes are normal. Cardiovascular: Normal rate, regular rhythm and normal heart sounds. Pulmonary/Chest: Effort normal and breath sounds normal. No respiratory distress. He has no wheezes. He has no rales. Neurological: He is alert and oriented to person, place, and time. Skin: Skin is warm and dry. No rash noted. Psychiatric: Affect and judgment normal. Nursing note and vitals reviewed. ASSESSMENT/PLAN: 1. Influenza B - ICD9: 487.1, ICD10: J10.1 (primary diagnosi s) Patient is influenza B is positive. He is in the [facility] w for Tamiflu. He does have a history of asthma and is a smoker. Given a prescripti on. Discussed contagiousness of the flu. May use pebh-qjw-glye ter cough cold medications as well as ibuprofen as needed. Follow-up if not improving ov er the next week. Patient is agreeable. 2. Cough - ICD9: 786.2, ICD10: R05 - INFLUENZA AANDB MOLECULAR (POC) Darshana Evagnelista PA-C Referring Provider: SELF [[id number]] Allergies As of Date: 05/03/2019 Noted Allergy Reaction AUGMENTIN (AMOXICILLIN-POT CLAVUL*01/14/2005 2 - Rash KEFLEX (CEPHALEXIN) 04/14/2006 2 - Rash Date Reviewed: 05/03/2019 Reviewed by: Arabella Edmond LPN - Fully Assessed Reason for Visit: Fever [47] Cmt: x 3 days headache, fever and cough. Exposed to Influenza B Primary Visit Diagnosis:Influenza B [J10.1] Other Visit Diagnosis:Cough [R05] Order(s):INFLUENZA AANDB MOLECULAR (POC) [[id number]] Order # : [id number]. #:[id number] oseltamivir (TAMIFLU) 75 mg capsuleTake 1 capsule by mouth t wice daily for 5 days.Disp: 10 capsuleRfl: 0 Prescriptions as of 05/03/2019 Sig: CPAP Initiate Auto PAP @ 6-12 cm o* CITALOPRAM 20 MG TABLET Take 1 tablet by mouth once d* MELOXICAM 15 MG TABLET Take 1 tablet by mouth once d* OSELTAMIVIR 75 MG CAPSULE Take 1 capsule by mouth twice* Problem List As Of Date 05/03/2019 Noted Resolved ATTN DEFICIT W HYPERACT [F90.9] 02/17/2006 SLEEP DISTURBANCES [780.5] 04/14/2006 08/11/2007 ALLERGIC RHINITIS NOS [J30.9] 12/07/2006 DYSPHAGIA [787.2] 07/03/2007 SPEECH DISTURBANCE NEC [784.5] 07/03/2007 Sleep disturbance, unspecified [G47.9] 08/11/2007 More... ABNORMALITY OF GAIT [R26.9] 08/22/2007 UNSOCIAL AGGRESS-UNSPEC [F91.1] 09/15/2007 CHEST PAIN NOS [R07.9] 09/15/2007 PAIN NECK [M54.2] 01/08/2008 HEADACHE [R51] 03/11/2008 DERMATITIS NOS [L25.9] 06/17/2008 Asthma [J45.909] 11/13/2009 Fibromyalgia [M79.7] More... Chronic bilateral low back pain without sciatic*09/25/2015 Prescriptions ordered this encounter Disp Refills Start End OSELTAMIVIR 75 MG CAPSULE 10 c* 0 05/03/2019 05/08/2019 Route: ORAL Sig: Take 1 capsule by mouth twice daily for 5 days. Letter Text Encounter Status:Closed by DARSHANA EVANGELISTA PA-C on 05/03/19 CNOV Office Visit (FAMPWS) Normal 05-03-19 [address] [place] [facility] KO DOLL ([id number]) 1995 M [place] Date Time Provider Department ([id number]) 05/03/19 3:20 PM SEMAJ FELICIANO (JOSELUIS.DEVAN) MERIPWS During your visit today, we recorded the following informati on about you: Temperature Pulse Respiration Blood pressure 99.3 degrees 104/minute 14/minute 126/76 Weight 109.8 kg Semja Feliciano DNP.CNP, ROUTE RETURNER.DEVAN 05/03/2019 4:17 PM Signed Chief Complaint Patient presents with: Headache: X 3 days 11/11 HPI Ko Doll is a 23 year old male who presents here today for a several day history of nausea, vomiting, REED and diarrhea for a few days This is an established patient of Dr. Franco Cordoba MD. This is a new patient to me. Denies any recent urgent care visits, ER visits or hospi talizations. States a several day history of the above symptoms and daughter was noted to have tested positive for influenza B. Past medical history, appointments, medications, allergies puneet mallory. 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, chronic neck pain - Fibromyalgia [facility] - Obesity - SLEEP DISTURBANCE NOS Previous Surgical History PAST SURGICAL HISTORY Procedure Laterality Date - INCISION EARDRUM,ASPIR,GEN ANESTH Myringotomy/tubes - REMOVAL ADENOIDS,PRIMARY,<12 Y/O Adenoidectomy Family History FAMILY HISTORY Problem Relation Age of Onset - COPD Mother - Cancer Maternal Grandmother small cell lung, smoker - Cancer Maternal Grandfather lymphoma Patient Allergies ALLERGIES Allergen Reactions - Augmentin [Amoxicil* Rash - Keflex [Cephalexin] Rash Current Medications Current Outpatient Medications on File Prior to Visit Medication Sig - CPAP Initiate Auto PAP @ 6-12 cm of water with humidificat ion. Mask (per patient preference) optional chin strap (if indicated) , braulio ters, tubing, humidifier and lifetime supplies. - citalopram (CELEXA) 20 mg tablet Take 1 tablet by mouth on ce daily. - meloxicam (MOBIC) 15 mg tablet Take 1 tablet b y mouth once daily. Take with food. No current facility-administered medications on file prior t o visit. Social History Social History Tobacco Use - Smoking status: Former Smoker - Smokeless tobacco: Current User Types: Chew - Tobacco comment: smokes 1 pack every 3 months Substance Use Topics - Alcohol use: No - Drug use: No Review of Symptoms EXAM: BP 126/76 (BP Site: Right Ar m, BP Position: Sitting, BP Cuff Size: Large Adult) Pulse 104 Temp 37.4 ?C (99.3 ?F) (Right Tympanic) Resp 14 Wt 109.8 kg (242 lb) SpO2 96% BMI 33.69 kg/m? Health Maintenance List TWO PNEUMOVAX 5 YEARS APART PRIOR TO AGE 65(1) due on 2012 ADULT PREVNAR-13 due on 2012 INFLUENZA(1) due on 12/03/2018 ANNUAL PCP TEAM CHRONIC DISEASE VISIT due on 06/30/2019 DTAP,TDAP,TD(6 - Td) due on 06/24/2021 HPV VACCINE Completed Data reviewed Last 5 Encounter BP Readings: Date: BP: 12/28/2018 122/86 08/02/2018 122/88 05/02/2018 120/74 02/22/2018 110/60 02/02/2018 112/74 BMI Readings from Last 5 Encounters: 05/03/19 : 33.69 kg/m? 12/28/18 : 33.30 kg/m? 08/02/18 : 34.95 kg/m? 06/29/18 : 35.64 kg/m? 05/13/18 : 34.93 kg/m? Last 5 Encounter Wt Readings: Date: Wt: 12/28/2018 108.5 kg (239 lb 3.2 oz) 08/02/2018 113.9 kg (251 lb) 06/29/2018 116.1 kg (256 lb) 05/02/2018 113.8 kg (250 lb 14.1 oz) 05/02/2018 117.9 kg (260 lb) Medication and allergy list reviewed, reconciled and updated . ASSESSMENT/PLAN: 1. Patient left without being seen - ICD9: V64.2, ICD10: Z53 .21 Patient left without being seen by provider. Semaj Feliciano DNP.WORKERS COMPENSATION ANALYST This note was completed with [employer] software. Note was reviewed for accuracy. There may be minor misspellings or gramm ar miscues with [employer] Dictation. [place] [id number] Referring Provider: FRANCO CORDOBA [[id number]] Allergies As of Date: 05/03/2019 Noted Allergy Reaction AUGMENTIN (AMOXICILLIN-POT CLAVUL*01/14/2005 2 - Rash KEFLEX (CEPHALEXIN) 04/14/2006 2 - Rash Date Reviewed: 05/03/2019 Reviewed by: Francie Carroll Vessel Liner - Fully Assessed Reason for Visit: Headache [52] Cmt: X 3 days 11/11 Primary Visit Diagnosis:Patient left without being seen [Z53 .21] Prescriptions as of 05/03/2019 Sig: CPAP Initiate Auto PAP @ 6-12 cm o* CITALOPRAM 20 MG TABLET Take 1 tablet by mouth once d* MELOXICAM 15 MG TABLET Take 1 tablet by mouth once d* Problem List As Of Date 05/03/2019 Noted Resolved ATTN DEFICIT W HYPERACT [F90.9] 02/17/2006 SLEEP DISTURBANCES [780.5] 04/14/2006 08/11/2007 ALLERGIC RHINITIS NOS [J30.9] 12/07/2006 DYSPHAGIA [787.2] 07/03/2007 SPEECH DISTURBANCE NEC [784.5] 07/03/2007 Sleep disturbance, unspecified [G47.9] 08/11/2007 More... ABNORMALITY OF GAIT [R26.9] 08/22/2007 UNSOCIAL AGGRESS-UNSPEC [F91.1] 09/15/2007 CHEST PAIN NOS [R07.9] 09/15/2007 PAIN NECK [M54.2] 01/08/2008 HEADACHE [R51] 03/11/2008 DERMATITIS NOS [L25.9] 06/17/2008 Asthma [J45.909] 11/13/2009 Fibromyalgia [M79.7] More... Chronic bilateral low back pain without sciatic*09/25/2015 Encounter Status:Closed by SEMAJ FELICIANO DNP WORKERS COMPENSATION ANALYST on 05/03/19 progress on 2018-12 PROGRESS HNO ID: [id number] Normal 12-28-2018 [facility] Author: Peace Huynh) Nelson [place] ([id number]) Service: ? Author Type: Nurse Practitioner Type: Progress Notes Filed: 12/28/2018 5:37 PM Note Text: This note was created using [email or web address]. Subjective Ko Doll is a 23 year old male. The history is provided by the patient. Sore Throat This is a new problem. Episode onset: 3 days. The problem reed s been unchanged. Neither side of throat is experiencing more pain than the other. There has been no fever. Associated symptoms include congestion, coughing, ear pain, headaches and swollen glands. He has had no exposure to strep. Treatments tried: mucinex, ibuprofen. The treatmen t provided no relief. Review of Systems Constitutional: Positive for chills. Negative for fever. HENT: Positive for congestion, ear pain, sinus pressure and sore throat. Respiratory: Positive for cough. Negative for wheezing. Allergic/Immunologic: Negative for immunocompromised state. Neurological: Positive for headaches. Hematological: Positive for adenopathy. 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 Mask (per patient preference) optional chin strap (if indicated) , brualio ters, tubing, humidifier and lifetime supplies. citalopram (CELEXA) 20 mg tablet Take 1 tablet by mouth once daily. meloxicam (MOBIC) 15 mg tablet Take 1 tablet by mouth once d aily. Take with food. FAMILY HISTORY Problem Relation Age of Onset - COPD Mother - Cancer Maternal Grandmother small cell lung, smoker - Cancer Maternal Grandfather lymphoma Social History Tobacco Use - Smoking status: Former Smoker - Smokeless tobacco: Current User Types: Chew - Tobacco comment: smokes 1 pack every 3 months Substance Use Topics - Alcohol use: No - Drug use: No Objective BP 122/86 Pulse 97 Temp 37.6 ?C (99.7 ?F) (Left Tympanic ) Resp 16 Wt 108.5 kg (239 lb 3.2 oz) SpO2 96% BMI 33.30 kg/m? Physical Exam Constitutional: He is oriented to person, place, and time. H e appears well-developed. HENT: Right Ear: Ear canal normal. Tympanic membrane is scarred. T ympanic membrane is not bulging. A middle ear effusion (clear air bu bbles) is present. Left Ear: Ear canal normal. Tympanic membrane is scarred. Ty mpanic membrane is not bulging. A middle ear effusion (clear air bu bbles) is present. Nose: Mucosal edema present. Mouth/Throat: Uvula is midline and mucous membranes are norm al. Posterior oropharyngeal erythema (mild) present. Cardiovascular: Normal rate, regular rhythm and normal heart sounds. Pulmonary/Chest: Effort normal and breath sounds normal. No cough noted Lymphadenopathy: He has cervical adenopathy. Right cervical: Superficial cervical adenopathy present. Left cervical: Superficial cervical adenopathy present. Neurological: He is alert and oriented to person, place, and time. Skin: Skin is warm and dry. Nursing note and vitals reviewed. Assessment and Plan 1. Viral URI with cough Negative strep, symptoms are likely viral, supportive care. Nasal saline/rinses, humidified air/steam, mucinex, sudafed, analg esics, warm salt water gargles, throat lozenges/sprays, increased fluids , rest. If no improvement in 5-7 days, new/worsening, return or see PCP fo r further evaluation. All questions answered, verbalized understanding . 2. Middle ear effusion, bilateral 3. Sore throat - RAPID STREP TEST B/O cnov on 2018-12-28 CNOV Office Visit ([facility]) Normal 12-29-19 [address] [place] KO Bazan ([id number]) 1995 M [place] Date Time Provider Department ([id number]) 12/28/18 5:00 PM PEACE DAMON (DEVAN) [facility] During your visit today, we recorded the following informati on about you: Temperature Pulse Respiration Blood pressure 99.7 degrees 97/minute 16/minute 122/86 Weight 108.5 kg Peace Damon APRN.CNP 12/28/2018 5:37 PM Signed This note was created using [email or web address]. Subjective Ko Doll is a 23 year old male. The history is provided by the patient. Sore Throat This is a new problem. Episode onset: 3 days. Th e problem has been unchanged. Neither side of throat is ex periencing more pain than the other. There has been no fever. Associated symptom s include congestion, coughing, ear pain, headaches and swollen glands. He has h ad no exposure to strep. Treatments tried: mucinex, ibuprofen. The treatment provided no relief. Review of Systems Constitutional: Positive for chills. Negative for fever. HENT: Positive for congestion, ear pain, sinus pressure and sore throat. Respiratory: Positive for cough. Negative for wheezing. Allergic/Immunologic: Negative for immunocompromised state. Neurological: Positive for headaches. Hematological: Positive for adenopathy. 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 Mask (per patient preference) optional chin strap (if indicated) , braulio ters, tubing, humidifier and lifetime supplies. citalopram (CELEXA) 20 mg tablet Take 1 tablet by mouth once daily. meloxicam (MOBIC) 15 mg tablet Take 1 tablet by mouth once daily. Take with food. FAMILY HISTORY Problem Relation Age of Onset - COPD Mother - Cancer Maternal Grandmother small cell lung, smoker - Cancer Maternal Grandfather lymphoma Social History Tobacco Use - Smoking status: Former Smoker - Smokeless tobacco: Current User Types: Chew - Tobacco comment: smokes 1 pack every 3 months Substance Use Topics - Alcohol use: No - Drug use: No Objective BP 122/86 Pulse 97 Temp 37.6 ?C (99.7 ?F) (Left Tympanic ) Resp 16 Wt 108.5 kg (239 lb 3.2 oz) SpO2 96% BMI 33.30 kg/m? Physical Exam Constitutional: He is oriented to person, place, and time. H e appears well-developed. HENT: Right Ear: Ear canal normal. Tympanic membrane is scarred. Tympanic membrane is not bulging. A middle ear effusion (clear air bubbles) is pr esent. Left Ear: Ear canal normal. Tympanic mem brane is scarred. Tympanic membrane is not bulging. A middle ear effusion (clear air bubbles) is pr esent. Nose: Mucosal edema present. Mouth/Throat: Uvula is midline and mucous membranes are norm al. Posterior oropharyngeal erythema (mild) present. Cardiovascular: Normal rate, regular rhythm and normal heart sounds. Pulmonary/Chest: Effort normal and breath sounds normal. No cough noted Lymphadenopathy: He has cervical adenopathy. Right cervical: Superficial cervical adenopathy present. Left cervical: Superficial cervical adenopathy present. Neurological: He is alert and oriented to person, place, and time. Skin: Skin is warm and dry. Nursing note and vitals reviewed. Assessment and Plan 1. Viral URI with cough Negative strep, symptoms are likely viral, supportive care. Nasal saline/rinses, humidified air/steam, mucinex, sudafed, analgesics, warm salt water gargles, throat lozenges/sprays, increased fluids, res t. If no improvement in 5-7 days, new/worsening, return or see PCP fo r further evaluation. All questions answered, verbalized understanding . 2. Middle ear effusion, bilateral 3. Sore throat - RAPID STREP TEST B/O Peace Damon APRN.CNP 12/28/2018 5:23 PM Signed Treatment for Viral Upper Respiratory Tract Infections Your body will kill off the virus by itself. Add itionally, you can prime your body's immune system. This may help you get better more quic kly. 1. Drink lots of fluids - at least one gallon of non-caffeinated liquids per day 2. Make sure you are eating well 3. Get plenty of rest - at l east 8 hours of sleep per night for adults and more for children We do not have any medications that kill off these viruses . Antibiotics are used to treat bacterial infections; mcguire sharon, they are not active against viral infections. There are some things that might help you feel b marciano, though. 1. Vaporizers, humidifiers, hot showers, and hot fluids help open respiratory and sinus passages 2. Sudafed is a safe and effective decongestant 3. Jerauld Nasal [place] may offer relief of nasal and head wilfredo estion 4. Justo's Vapor Rub placed on a hot towe l and draped over the head may relieve congestion 5. Tylenol and Advil help control fevers and headaches 6. Salt water gargles help relieve sore throats 7. Chloraceptic spray or throat lozenges may also help relie ve sore throat symptoms 8. Robitussin DM will help loosen up sec retions and also provide relief from a cough Occasionally, viral infections turn into something more se rious. You should see your doctor or return to the Urgent Care if: 1. You have fevers for longer than five days 2. You have fevers above 102 degrees 3. You are still sick after 10 days 4. You have shortness of breath or wheezing 5. After several days you are getting worse rather than bett er Referring Provider: KANDIS GOLDMAN [[id number]] Allergies As of Date: 12/28/2018 Noted Allergy Reaction AUGMENTIN (AMOXICILLIN-POT CLAVUL*01/14/2005 2 - Rash KEFLEX (CEPHALEXIN) 04/14/2006 2 - Rash Date Reviewed: 12/28/2018 Reviewed by: Francie Pike Ma - Fully Assessed Reason for Visit: Sinusitis [127] Cmt: with sore throat x 3 days Primary Visit Diagnosis:Sore throat [J02.9] Other Visit Diagnoses:Viral URI with cough [J06.9, B97.89] Middle ear effusion, bilateral [H65.93] Order(s):RAPID STREP TEST B/O [4996859] Order #: [id number] Prescriptions as of 12/28/2018 Sig: CPAP Initiate Auto PAP @ 6-12 cm o* CITALOPRAM 20 MG TABLET Take 1 tablet by mouth once d* MELOXICAM 15 MG TABLET Take 1 tablet by mouth once d* Problem List As Of Date 12/28/2018 Noted Resolved ATTN DEFICIT W HYPERACT [F90.9] INVALID FOR* SLEEP DISTURBANCES [780.5] INVALID FOR*08/11/2007 ALLERGIC RHINITIS NOS [J30.9] INVALID FOR* DYSPHAGIA [787.2] INVALID FOR* SPEECH DISTURBANCE NEC [784.5] INVALID FOR* Sleep disturbance, unspecified [G47.9] INVALID FOR* More... ABNORMALITY OF GAIT [R26.9] INVALID FOR* UNSOCIAL AGGRESS-UNSPEC [F91.1] INVALID FOR* CHEST PAIN NOS [R07.9] INVALID FOR* PAIN NECK [M54.2] INVALID FOR* HEADACHE [R51] INVALID FOR* DERMATITIS NOS [L25.9] INVALID FOR* Asthma [J45.909] INVALID FOR* Fibromyalgia [M79.7] More... Chronic bilateral low back pain without sciatic*INVALID FOR* Other instructions from your clinician: Treatment for Viral Upper Respiratory Tract Infections Your body will kill off the virus by itself. Additionally, y ou can prime your body's immune system. This may help you get better more quickly. 1. Drink lots of fluids - at least one gallon of non-caffein ated liquids per day 2. Make sure you are eating well 3. Get plenty of rest - at least 8 hours of sleep per night for adults and more for children We do not have any medications that kill off these viruses. Antibiotics are used to treat bacterial infections; however, they are no t active against viral infections. There are some things that might h elp you feel better, though. 1. Vaporizers, humidifiers, hot showers, and hot fluids help open respiratory and sinus passages 2. Sudafed is a safe and effective decongestant 3. Jerauld Nasal [place] may offer relief of nasal and head wilfredo estion 4. Justo's Vapor Rub placed on a hot towel and draped over th e head may relieve congestion 5. Tylenol and Advil help control fevers and headaches 6. Salt water gargles help relieve sore throats 7. Chloraceptic spray or throat lozenges may also help relie ve sore throat symptoms 8. Robitussin DM will help loosen up secretions and also pro vide relief from a cough Occasionally, viral infections turn into something more seri ous. You should see your doctor or return to the Urgent Care if: 1. You have fevers for longer than five days 2. You have fevers above 102 degrees 3. You are still sick after 10 days 4. You have shortness of breath or wheezing 5. After several days you are getting worse rather than bett er Encounter Status:Closed by NELSONBAYRON CAO.PEACE HARTMAN on 12/28/18 emergency department summary on 2017-05-16 EMERGENCY DEPARTMENT [facility] Normal 0 05-16-2017 [facility] SUMMARY EMERGENCY DEPARTMENT [facility] SUMMARY NAME NUMBER SEX ([id number]) AGE ADMIT DISC TYPE MED.RECORD# SHARMILA Moreno [id number] M 21 05/04/17 05/04/17 [place] [id number] ROOM:ER-I DATE OF :1995 PHYSICIAN NO.:[id number] PHYSICIAN NAME:JOVANA Bui M.D. PHYSICIAN:NO DOCTOR ON ADMISSION SHEET CHIEF COMPLAINT: Back pain. HISTORY OF PRESENT ILLNESS: The patient states that he has a history of chronic back pain secondary to degenerative discs. He states that this has been going on for years. He presents with increasing pain over the past several days. It seems to be localized more to the mid back somewhat to the left side. It is worse with bending, twisting, etc. He does not recall any specific injury or trauma. He does not have any pain radiating into his extremities. No shortness of breath. PAST MEDICAL HISTORY: As mentioned significant for chronic back pain. He has a history of asthma. MEDICATIONS: Per med rec list. ALLERGIES: He is allergic to penicillin and cephalexin. PAST SURGICAL HISTORY: He has had previous neck surgery. SOCIAL HISTORY: He lives at home. He does not smoke. He does drink alcohol occasionally. He is employed. He was unable to go to work because of pain. PHYSICAL EXAMINATION: This is a 21-year-old well-nourished, developed slightly obese male alert and appropriate, does not appear toxic. He does appear uncomfortable walking, but is able to ambulate well. His skin is pink, warm, and dry. He has no tenderness to his head or neck, and generally normal range of motion to his neck. He complains of pain with palpation diffusely across the mid thoracic back. It seems to be a little bit more so along the left paraspinal musculature. There is no focal bony tenderness. He does not seem to have any lumbar tenderness. Overall, truncal movement is mildly diminished secondary to pain. He has no chest wall or abdominal tenderness. Good peripheral pulses. Deep tendon reflexes are equal and symmetrical. Normal range of motion to his extremities. Vital signs: Temperature 97.5, pulse 83, respirations 16, blood pressure 120/76. EMERGENCY DEPARTMENT COURSE AND TREATMENT: He was given an injection of Toradol IM. DIAGNOSIS: Back pain exacerbation. PLAN/DISPOSITION: He was given a prescription for Anaprox and Flexeril, a slip for work for today and tomorrow. He is to follow up with his family physician in 2 to 3 days if no better. D: Mario Alberto Bui MD TD: 16:20 JOB #: [id number] Electronically signed by: JOVANA Bui M.D. 05/16/17 07:11 Transcribed by: am 05/05/2017 13:54 ELECTRONICALLY SIGNED BY: JOVANA Bui M.D. 05/16/17 07:11 Encounters Date Type Reason Provider Location 05-04-2017 - Emergency MARIO ALBERTO Cottrell Rolando ram 05-04-2017 department patient HAO DOCTOR ON NO [facility] Hospital visit MARIO ALBERTO BUI DOCTOR ([id number]) ON NO 11-29-2019 - Patient encounter Chronic low back Franco Pinedo [facility] 11-29-2019 procedure pain [place] Comment: Fatigue, unspecified type (P rimary Dx); Chronic midline low back keshawn n, unspecified whether sciatica present; Weight gain 11-29-2019 - Telemedicine Franco Pinedo [place] 11-29-2019 consultation with [facility] patient 12-05-2019 - Telephone Acquired Franco Pinedo [facility] Medicine 12-05-2019 encounter hypothyroidism [facility] O[place] Comment: Results 12-04-2019 - 12-04-2019 Telephone encounter Sameer Shipman [facility] [place] Comment: New Patient (OTILIA) 11-28-2019 - Telephone encounter Fatigue Franco Pinedo [facility] 11-28-2019 [place] Comment: Fatigue Plan of Treatment Plan Description Date Location DTAP,TDAP,TD (6 - Td) DTAP,TDAP,TD (6 - Td) 06-24-2021 - [facility] 06-24-2021 ([id number]) ANNUAL PCP TEAM CHRONIC ANNUAL PCP TEAM CHRONIC 11-28-2020 - [facility] DISEASE VISIT DISEASE VISIT 11-28-2020 ([id number]) ANNUAL PCP TEAM CHRONIC ANNUAL PCP TEAM CHRONIC 05-03-2020 [facility] DISEASE VISIT DISEASE VISIT ([id number]) INFLUENZA (#1) INFLUENZA (#1) 2019 - [facility] 12-04-2019 ([id number]) ADULT PREVNAR-13 ADULT PREVNAR-13 2012 - [facility] ic 2012 ([id number]) TWO PNEUMOVAX 5 YEARS TWO PNEUMOVAX 5 YEARS 2012 - [facility] APART PRIOR TO AGE 65 APART PRIOR TO AGE 65 2012 ([phone]) (#1) (#1) HEPATITIS C SCREENING HEPATITIS C SCREENING 10-31-2011 - [facility] 10-31-2011 ([id number]) HIV SCREENING HIV SCREENING 10-31-2011 - [facility] 10-31-2011 ([id number]) SPIROMETRY SPIROMETRY 10-31-2011 - [facility] 10-31-2011 ([id number]) HPV VACCINE (1 - Male HPV VACCINE (1 - Male 2004 - [facility] 2-dose series) 2-dose series) 2004 ([id number]) CBC CBC Lab Routine Fatigue, 11-28-2020 [facility] unspecified type Weight (67960) gain 1 Occurrences starting 11/29/2019 until 11/28/2020 Comment: 1 Occurrences starting 11/28 until 11/28/2020 COMP METABOLIC PANEL COMP METABOLIC PANEL Lab 11-28-2020 [facility] ([id number]) Routine Fatigue, unspecified type Weight gain 1 Occurrences starting 11/29/2019 until 11/28/2020 Comment: 1 Occurrences starting 11/28 until 11/28/2020 HGB A1C HGB A1C Lab Routine Fatigue, unspecified 021 [facility] ([id number]) type Weight gain 1 Occurrences starting 11/29/2019 until 11/28/2020 Comment: 1 Occurrences starting 11/28 until 11/28/2020 T4 FREE/FREE THYROX T4 FREE/FREE THYROX Lab 12-05-2020 [facility] ([id number]) Routine Hypothyroidism, acquired 1 Occurrences starting 12/06/2019 until 12/05/2020 Comment: 1 Occurrences starting 12/05 until 12/05/2020 TSH BLD TSH BLD Lab Routine Fatigue, unspecified 021 [facility] ([id number]) type Weight gain 1 Occurrences starting 11/29/2019 until 11/28/2020 Comment: 1 Occurrences starting 11/28 until 11/28/2020 TSH (FOR REMOTE [facility] TSH (FOR REMOTE [facility] USE) Lab 12-05-2020 [facility] USE) Routine Hypothyroidism, ([id number]) acquired 1 Occurrences starting 12/06/2019 until 12/05/2020 Comment: 1 Occurrences starting 12/05 until 12/05/2020 no information [facility] ([id number]) Immunizations Vaccine Notes Status Date Location DTaP (Age<7) diphtheria, tetanus (completed) 01-06-1999 - [facility] toxoids and acellular 01-06-1999 ([id number] ) pertussis vaccine DTaP (Age<7) diphtheria, tetanus (completed) 11-20-1997 - [facility] toxoids and acellular 11-20-1997 ([id number] ) pertussis vaccine DTaP (Age<7) diphtheria, tetanus (completed) 04-26-1996 - [facility] toxoids and acellular 04-26-1996 ([id number] ) pertussis vaccine DTaP (Age<7) diphtheria, tetanus (completed) 04-22-1994 - [facility] toxoids and acellular 04-22-1994 ([id number] ) pertussis vaccine DTaP (Age<7) diphtheria, tetanus (completed) 01-14-1994 - [facility] toxoids and acellular 01-14-1994 ([id number] ) pertussis vaccine HIB - 3 Dose Schedule haemophilus (completed) 04-26-1996 - [facility] influenzae type b 04-26-1996 ([id number]) vaccine, conjugate unspecified formulation HIB - 3 Dose Schedule haemophilus (completed) 05-02-1994 - [facility] influenzae type b 05-02-1994 ([id number]) vaccine, conjugate unspecified formulation Hepatitis B Peds/Adol hepatitis B vaccine, (completed) 04-26-1996 - [facility] pediatric or 04-26-1996 ([id number]) pediatric/adolescent dosage Hepatitis B Peds/Adol hepatitis B vaccine, (completed) 01-14-1994 - [facility] pediatric or 01-14-1994 ([id number]) pediatric/adolescent dosage Hepatitis B Peds/Adol hepatitis B vaccine, (completed) 1993 - [facility] pediatric or 1993 ([id number]) pediatric/adolescent dosage Influenza Seasonal Inj influenza, (completed) 02-02-2018 - [facility] Quadrivalent Age 3+ injectable, 02-02-2018 ([id number]) quadrivalent, contains preservative MMR measles, mumps and (completed) 01-06-1999 - [facility] rubella virus vaccine 01-06-1999 ([id number] ) MMR measles, mumps and (completed) 04-26-1996 - [facility] rubella virus vaccine 04-26-1996 ([id number] ) Meningococcal Conj IM Meningococcal, MCV4, (completed) 06-25-2011 - [facility] Unspec unspecified conjugate 06-25-2011 ([id number] ) formulation(groups A, C, Y and W-135) Tdap (Age 7+) tetanus toxoid, (completed) 06-25-2011 - [facility] linic reduced diphtheria 06-25-2011 ([id number]) toxoid, and acellular pertussis vaccine, adsorbed OPV trivalent poliovirus (completed) 01-06-1999 - [facility] vaccine, live, oral 01-06-1999 ([id number]) OPV trivalent poliovirus (completed) 04-26-1996 - [facility] vaccine, live, oral 04-26-1996 ([id number]) OPV trivalent poliovirus (completed) 04-22-1994 - [facility] vaccine, live, oral 04-22-1994 ([id number]) OPV trivalent poliovirus (completed) 01-14-1994 - [facility] vaccine, live, oral 01-14-1994 ([id number]) Payers Payer Name Policy Number Location ANTHEM [id number] [facility] ([phone]) [facility] [id number] [facility] ([phone]) The following information is from the original human readable contentNo Payer Records FoundNo Payer Records FoundNo Payer Records FoundNo Payer Records FoundNo Payer Records Found Social History Type Social History Date Location Description Tobacco use and exposure Current user 05-03-2019 - [facility] 11-29-2019 ([id number]) History SDOH Alcohol 5 11-29-2019 - [facility] linic Frequency 11-29-2019 ([id number]) History of tobacco use Chews Tobacco [facility] ([id number]) Alcohol intake Current non-drinker of 05-03-2019 - [facility] alcohol (finding) 11-29-2019 ([id number]) Tobacco Comment smokes 1 pack every 3 03-04-2014 - [facility] months 03-04-2014 ([id number]) Sex Assigned At Not on file [facility] ([id number]) Exposure to SARS-CoV-2 Not sure [facility] (event) ([id number]) Tobacco smoking status Former smoker 05-03-2019 - [facility] NHIS 11-29-2019 ([id number]) History SDOH Alcohol Std 2 11-29-2019 - [facility] Drinks 11-29-2019 ([id number]) History SDOH Alcohol 4 11-29-2019 - [facility] linic Binge 11-29-2019 ([id number]) History SDOH Social 1 11-29-[address] - [facility] 11-29-2019 ([id number]) History SDOH Social 3 11-29-2019 - [facility] Meetings 11-29-2019 ([id number]) History SDOH Social 8 11-29-2019 - [facility] Living 11-29-2019 ([id number]) History SDOH Physical 13 11-29-2019 - [facility] Activity MPS 11-29-2019 ([id number]) History SDOH Education 14 11-29-2019 - [facility] 11-29-2019 ([id number]) The following information is from the original human readable contentNo Social History Records FoundNo Social History Records FoundNo Social History Records FoundNo Social History Records FoundNo Social History Records Found Summary Purpose Family History No Family History Records FoundNo Family History Records FoundNo Family History Records Found Advance Directives No Advanced Directives Records FoundNo Advanced Directives Records FoundNo Advanced Directives Records Found History of Past Illness Problem Noted Date Resolved Date Sleep disturbances 04/14/2006 08/11/2007 Problem Noted Date Resolved Date Sleep disturbances 04/14/2006 08/11/2007 Problem Noted Date Resolved Date Sleep disturbances 04/14/2006 08/11/2007 Problem Noted Date Resolved Date Sleep disturbances 04/14/2006 08/11/2007 Reason for Referral Status Reason Specialty Diagnoses / Referred By Referred To Procedures Contact Contact Pending PCP Requested Pain Management Diagnoses Chronic midline low back pain, unspecified whether sciatica present Mia Cordoba Referral Procedures CONSULT TO PAIN MGT NEW PATIENT VISIT LEVEL 5 Franco Pinedo [address] [place] [address] History of Present Illness Franco Cordoba - 11/29/2019 4:20 PM EDT This Team Access Model visit is a phone encounter. It required patient-provider interaction for the medical decision making as documented below. Chief Complaint Patient presents with: Fatigue HPI: This Team Access Model visit is a virtual/phone encounter. It required patient-provider interaction for the medical decision making as documented below. Patient was offered a virtual/telemedicine appointment in lieu of an office visit due to recommendations to reduce patient exposure to COVID-19. Patient is aware of limitations of performing the visit without a face to face visit in the office setting and agrees. Fatigue - Ongoing for the last 3 weeks. Reports he drinking pop and also cut out all caffeine over the last 3 weeks. Denies any headaches or migraines but feels less motivated to do anything after stopping caffeine. Wonders if this due to not drinking any caffeine. He also notes that he's gained 30 lbs in the last 3 weeks. If he is hurrying trying to do something it causes him to have dizzy spells and has feels he shakes all the time. Chronic pain - Reports ongoing chest, rib and belly pain, that has been ongoing for years. Describedas a shooting pain that occurs daily. Pain today a 5-6/10. LUIS ALBERTO - Wears CPAP, but admits to not using regularly. Admits to not wearing during the weekend due totent camping. DARCI/Depression - Reports that he stopped taking it, has been off medication for the last 6 months. Feels like the Celexa 20 mg once daily didn't help. Chiropractor also recommended that he discuss his back. Ongoing chronic back pain that he can't get to stop or get himself comfortable. Pt reports possibly the area of L2-L3. Past medical history, appointments, medications, allergies reviewed. Previous Medical History PAST MEDICAL HISTORY Diagnosis Date ? ADD (attention deficit disorder) ? Anxiety ? Asthma ? Bulge of thoracic disc without myelopathy chronic back pain ? 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 Fibromyalgia [facility] ? Obesity ? SLEEP DISTURBANCE NOS Previous Surgical History PAST SURGICAL HISTORY Procedure Laterality Date ? INCISION EARDRUM,ASPIR,GEN ANESTH Myringotomy/tubes ? REMOVAL ADENOIDS,PRIMARY,<12 Y/O Adenoidectomy Family History FAMILY HISTORY Problem Relation Age of Onset ? COPD Mother ? Cancer Maternal Grandmother small cell lung, smoker ? Cancer Maternal Grandfather lymphoma Patient Allergies ALLERGIES Allergen Reactions ? Augmentin [Amoxicil* Rash ? Keflex [Cephalexin] Rash Current Medications Current Outpatient Medications on File Prior to Visit Medication Sig ? CPAP Initiate Auto PAP @ 6-12 cm of water with humidification. Mask (per patient preference) optional chin strap (if indicated) , filters, tubing, humidifier and lifetime supplies. ? citalopram (CELEXA) 20 mg tablet Take 1 tablet by mouth once daily. ? meloxicam (MOBIC) 15 mg tablet Take 1 tablet by mouth once daily. Take with food. No current facility-administered medications on file prior to visit. Social History Social History Tobacco Use ? Smoking status: Former Smoker ? Smokeless tobacco: Current User Types: Chew ? Tobacco comment: smokes 1 pack every 3 months Substance Use Topics ? Alcohol use: No Frequency: 4 or more times a week Drinks per session: 3 or 4 Binge frequency: Weekly ? Drug use: No EXAM: There were no vitals taken for this visit. Health Maintenance List HPV VACCINE(1 - Male 2-dose series) due on 2004 SPIROMETRY due on 10/31/2011 HEPATITIS C SCREENING due on 10/31/2011 HIV SCREENING due on 10/31/2011 TWO PNEUMOVAX 5 YEARS APART PRIOR TO AGE 65(1) due on 2012 ADULT PREVNAR-13 due on 2012 INFLUENZA(1) due on 12/04/2019 ANNUAL PCP TEAM CHRONIC DISEASE VISIT due on 05/03/2020 DTAP,TDAP,TD(6 - Td) due on 06/24/2021 MENINGOCOCCAL CONJUGATE Completed Data reviewed None ASSESSMENT/PLAN: 1. Chronic midline low back pain, unspecified whether sciatica present - ICD9: 724.2, 338.29, ICD10:M54.5, G89.29 (primary diagnosis) Chronic low back pain Has not responded to home care scheduler with PT; will refer to Pain Management for evaluation for injections - CONSULT TO PAIN MGT 2. Fatigue, unspecified type - ICD9: 780.79, ICD10: R53.83 - COMP METABOLIC PANEL - HGB A1C - CBC - TSH BLD 3. Weight gain - ICD9: 783.1, ICD10: R63.5 - COMP METABOLIC PANEL - HGB A1C - CBC - TSH BLD Notify of lab results and further action from there 11-20 minutes of time spent on phone call I agree with the Chief Complaint, ROS, and Past Histories independently gathered by the clinical sales support specialist and the remaining scribed note accurately describes my personal service to the patient. Franco Cordoba MD The documentation for this note was completed by Elaine Hu MA acting as scribe for Franco Cordboa MD. November 29, 2019 4:15 PM. Elaine Hu MA documented in this encounter Assessments Diagnosis Fatigue, unspecified type - Primary Chronic midline low back pain, unspecifi ed whether sciatica present Weight gain Abnormal weight gain Diagnosis Hypothyroidism, acquired - Primary Unspecified hypothyroidism Additional Source Comments FOR RECORDS PERTAINING TO PATIENTS WHO ARE OR HAVE BEEN ENROLLED IN A CHEMICAL DEPENDENCY/SUBSTANCE ABUSE PROGRAM, SOME INFORMATION MAY BE OMITTED. This clinical summary was aggregated from multiple sources. Caution should be exercised in using it in the provision of clinical care. This summary normalizes information from multiple sources, and as a consequence, information in this document may materially changethe coding, format and clinical context of patient data. In addition, data may be omittedin some cases. CLINICAL DECISIONS SHOULD BE BASED ON THE PRIMARY CLINICAL RECORDS. [employer] [facility] provides no warranty or guarantee of the accuracy or completeness of information in this document. UNRECOGNIZED CONTENT PROVIDED BELOW FOR UNRECOGNIZED SECTION No Status Records FoundNo Status Records FoundNo Status Records Found UNRECOGNIZED CONTENT PROVIDED BELOW FOR UNRECOGNIZED SECTION INFORMATION SOURCE DATE CREATED AUTHOR AUTHOR'S ORGANIZATIO N 09/26/2017 [facility] DATE CREATED AUTHOR AUTHOR'S ORGANIZATIO N 12/04/2019 [facility] DATE CREATED AUTHOR AUTHOR'S ORGANIZATIO N 12/06/2019 [facility] UNRECOGNIZED CONTENT PROVIDED BELOW FOR UNRECOGNIZED SECTION Source Comments In the event this information is protected by the Federal Confidentiality of Alcohol and Drug Abuse Patient Records regulations: The Federal rules restrict any use of the information to criminally investigate or prosecute any alcohol or drug abuse patient.[facility] the event this information is protected by the Federal Confidentiality of Alcohol and Drug Abuse Patient Records regulations: The Federal rules restrict any use of the information to criminally investigate or prosecute any alcohol or drug abuse patient.[facility] the event this information is protected by the Federal Confidentiality of Alcohol and Drug Abuse Patient Records regulations: The Federal rules restrict any use of the information to criminally investigate or prosecute any alcohol or drug abuse patient.[facility] the event this information is protected by the Federal Confidentiality of Alcohol and Drug Abuse Patient Records regulations: The Federal rules restrict any use of the information to criminally investigate or prosecute any alcohol or drug abuse patient.[facility] UNRECOGNIZED CONTENT PROVIDED BELOW FOR UNRECOGNIZED SECTION Reason for Visit Reason Onset Date Comments Fatigue 11/28/2019 Reason Comments Fatigue Status Reason Specialty Diagnoses / Referred By Referred To Procedures Contact Contact Authorized Patient Cleared Family Practice Diagnoses Fatigue x 3 Weeks. Please Call Pt Twice, may not have good service Lucas Cordoba - INN Insurance / FAMILY Procedures PROVIDER PHONE CALL Franco Pinedo [facility] [address] [place] [address] [place] [id number] Phone: Fax: Reason Onset Date Comments New Patient 12/04/2019 [place] Reason Onset Date Comments Results 12/05/2019 UNRECOGNIZED CONTENT PROVIDED BELOW FOR UNRECOGNIZED SECTION Miscellaneous Notes Telephone Encounter - Franco Cordoba - 11/29/2019 11:15 AM EDTNoted Franco Cordoba MD elephone Encounter - Maria A Tripp (Rn), RN - 11/28/2019 4:43 PM EDTPt calls stating he quit drinking pop 3 weeks ago and since then has been fatigued and has no energy. States he was drinking 63 ounces per day. States he quit cold turkey and is not drinking water. States 30 lb weight increase. Maintained the same diet, possibly eating a little more. Stats taking Vit B Complex for energy. Exercise routine is the same. Scheduled phone call with PCP tomorrow. Pt stateshe will be leaving work and does not have VM setup yet. 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 documented in this encounterTelephone Encounter - Marta Daugherty - 12/04/2019 10:26 AM EDTTRIED TO REACH OUT TO PATIENT TO SCHEDULE WITH DR. CUELLO A NEW PATIENT IN [place] AND ANSWER NEW PATIENT QUESTIONS. AT THIS TIME THE MAIL BOX IS FULL AND UNABLE TO LEAVE MESSAGE. Marta Daugherty documented in this encounterTelephone Encounter - Elaine Hu MA - 12/06/2019 10:52 AM EDTTried calling pt, but unable to LM due to VM being full. Sent [employer] message with all info below. Notified pt that Rx for Levothyroxine has been sent to [facility]. Asked pt if he'd like to complete a VV or in office in 3 months and to schedule lab appt. Elaine Hu MA elephone Encounter - Franco Cordoba - 12/06/2019 9:12 AM EDTHis TSH is slightly high, so I think he would benefit from being on thyroid medicine at this point; e verything else looked fine - his glucose was slightly high, but his A1c was normal, so I think his blood sugars have been fine. Rx done for Synthroid; recheck in 3 months with labs and office/virtual visit. Franco Cordoba MD elephone Encounter - Kitty Anderson RN - 12/05/2019 12:25 PM EDT Patient reviewed lab results on [facility]. Asking pcp to review and advise on abnormals. Reports he took thyroid medication when he was 14, then was told did not need it, and has not taken since then. Component Latest Ref Rng & Units 12/04/2019 Protein, Total 6.3 - 8.0 g/dL 7.0 Albumin 3.9 - 4.9 g/dL 4.5 Calcium 8.5 - 10.2 mg/dL 9.5 Bilirubin, Total 0.2 - 1.3 mg/dL 0.3 Alkaline Phosphatase 38 - 113 U/L 55 AST 14 - 40 U/L 20 Glucose 74 - 99 mg/dL 107 (H) BUN 9 - 24 mg/dL 18 Creatinine 0.73 - 1.22 mg/dL 0.86 Sodium 136 - 144 mmol/L 140 Potassium 3.7 - 5.1 mmol/L 4.2 Chloride 97 - 105 mmol/L 102 CO2 22 - 30 mmol/L 29 Anion Gap 9 - 18 mmol/L 9 ALT 10 - 54 U/L 22 eGFR- >60 eGFR-All Other Races . >60 WBC 3.70 - 11.00 k/uL 5.88 RBC 4.20 - 6.00 m/uL 5.69 Hemoglobin 13.0 - 17.0 g/dL 16.2 Hematocrit 39.0 - 51.0 % 46.1 MCV 80.0 - 100.0 fL 81.0 MCH 26.0 - 34.0 pG 28.5 MCHC 30.5 - 36.0 g/dL 35.1 RDW-CV 11.5 - 15.0 % 12.5 Platelet Count 150 - 400 k/uL 204 MPV 9.0 - 12.7 fL 8.6 (L) Absolute nRBC <0.01 k/uL <0.01 Hemoglobin A1C 4.3 - 5.6 % 5.2 Estimated Average Glucose mg/dL 103 TSH 0.270 - 4.200 uU/mL 5.040 (H) documented in this encounter"
--- OUTSIDE RECORDS SUMMARY | 2020-01-15 14:04 | XMS RPT_ITS | CCD ---
:1995 External Reference #:[id number] Author Organization [facility] Care Team Providers Name Role Phone BUI, C Unavailable Unavailable BUI, C Unavailable Unavailable NO, ON Unavailable Unavailable BUI, C Unavailable Unavailable NO, ON Unavailable Unavailable Shahida Cordoba Primary Care Provider Allergies Reported Allergen Reaction(s) Severity Date of Onset Location acetylcarnitine [facility] Reposi tory amoxicillin / clavulanate [facility] Reposi tory Amoxicillin / Clavulanate Rash 01-14-2005 - [facility] (17501) cephalexin [facility] Reposi tory Cephalexin Rash 04-14-2006 - [facility] (16949) Medications Medication Name Sig Date Prescriber Location Citalopram citalopram (CELEXA) 05-02-2018 - Franco Pinedo [facility] 20 mg tablet 11-29-2019 (34932) Indications: Anxiety and depression Take 1 tablet by mouth once daily. 30 tablet 5 05/02/2018 11/29/2019 Discontinued Comment: Take 1 tablet by mouth once daily. CPAP CPAP Indications: LUIS ALBERTO 05-25-2018 Franco [facility] (obstructive sleep apnea) (4 4195) Initiate Auto PAP @ 6-12 cm of water with humidification. Mask (per patient preference) optional chin strap (if indicated) , filters, tubing, humidifier and lifetime supplies. 1 Device 0 05/25/2018 Active CPAP Indications: LUIS ALBERTO 05-25-2018 Franco Cordoba [facility] (80554) (obstructive sleep apnea) Initiate Auto PAP @ 6-12 cm of water with humidification. Mask (per patient preference) optional chin strap (if indicated) , filters, tubing, humidifier and lifetime supplies. 1 Device 0 05/25/2018 Active CPAP Indications: LUIS ALBERTO 05-25-2018 [place] ([address]) (obstructive sleep apnea) Initiate Auto PAP @ 6-12 cm of water with humidification. Mask (per patient preference) optional chin strap (if indicated) , filters, tubing, humidifier and lifetime supplies. 1 Device 0 05/25/2018 Active CPAP Indications: LUIS ALBERTO 05-25-2018 [place] ([address]119) (obstructive sleep apnea) Initiate Auto PAP @ [...] supplies. levothyroxine levothyroxine 12-06-2019 Franco Mcfarland [place] [facility] (SYNTHROID) 75 mcg Franco Mcfarland (441 95) tablet Indications: Hypothyroidism, acquired Take 1 tablet by mouth once daily. Take on empty stomach. For Thyroid 30 tablet 11 12/06/2019 Active Comment: Take 1 tablet by mouth once daily. Take on empty stomach. For Thyroid meloxicam meloxicam (MOBIC) 15 05-02-2018 - [facility] 11-29-2019 (92140) Indications: Chronic bilateral low back pain without sciatica , Tendonitis of foot Take 1 tablet by mouth once daily. Take with food. 30 tablet 5 05/02/2018 11/29/2019 Discontinued Comment: Take 1 tablet by mouth once daily. Take with food. 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[facility] conduct and disruptive conduct disorder ( 21934) behavior disorders Attention-deficit Attention-deficit Active 02-17-2006 - [facility] conduct and disruptive hyperactivity disorder, (99212) behavior disorders unspecified type Malaise and fatigue Fatigue Active [facility] (26075) Other connective Fibromyalgia Active [facility] linic tissue disease (52958) Other nutritional; Weight gain Active [facility] endocrine; and (91369) metabolic disorders Other upper Allergic rhinitis Active 12-07-2006 - [facility] respiratory disease (04110) Thyroid disorders Acquired hypothyroidism Active [facility] (59515) Past or Other Problems Category Problem Name Status Date Location Allergic reactions Contact dermatitis Completed 06-17-2008 - [facility] (94750) Headache; including Headache Completed 03-11-2008 - [facility] migraine (42314) Nonspecific chest pain Chest pain Completed 09-15-2007 - [facility] (54710) Other gastrointestinal Dysphagia Completed 07-03-2007 - [facility] disorders (89457) Other nervous system Abnormal gait Completed 08-22-2007 - [facility] disorders (30612) Other nervous system Disturbance in Completed 07-03-2007 - [facility] disorders speech (09164) Residual codes; Disturbance in sleep Completed 08-11-2007 - [facility] unclassified behavior (31898) Spondylosis; Chronic low back Completed 01-08-2008 - [facility] linic intervertebral disc pain (82354) disorders; other back problems Results Result Name Value Range Unit Interpretation Flag Date Location [facility] on 2019-12-05 [facility] Telephone (FAMPWS) Normal 12-05-2019 [place] [facility] KO DOLL ([id number]) 1995 [facility] Date Time Provider Department (53321) 12/05/19 FRANCO CORDOBA FAMPWS During your visit today, we recorded the following informati on about you: Kitty Anderson RN 12/05/2019 12:28 PM Signed [facility] to rev iew and advise [...] LM due to VM being full. Sent AcEmpiret message with sohan foley info below. Notified pt that Rx for Levothyroxine has been sent to [facility]. Asked pt if he'd like to com [...] ThyroidDisp: 30 tabletRfl: 11 TSH (FOR REMOTE [facility] USE) [SQRTSH] Order #: [id number] FUTURE T4 FREE/FREE THYROX [SQFT4] Order #: [id number] FUTURE Prescriptions as of 12/05/2019 Sig: LEVOTHYROXINE [...] TSH Qn 5.040 0.270-4.200 uU/mL High 12-04-2019 [facility] (21398) Comment: Performed By: #### TSH, HBA1 C ####[address] [phone] hemoglobin a1c on 2 HbA1c (Bld) [Mass fraction] 5.2 4.3-5.6 % Normal [facility] (02149) Comment: Result Comment: [place] Yodit betes Association guidelines indicate that patients with HgbA1c in the range 5.7-6.4% are at increased risk for development of diabetes, and intervention by lifestyle modification may be beneficial. HgbA1c greater o r equal to 6.5% is considered diagnostic of diabetes. Performed By: #### TSH, HBA1 C ####[address] [phone] HbA1c (Bld) [Mass fraction] 103 mg/dL Normal [facility] (10319) Comment: Result Comment: eAG: (Estima aubrey average glucose) is a calculated value from HgbA1c and is outreach representative of the average blood glucose level in the last 2-3 month period. Performed By: #### TSH, HBA1 C ####[address] [phone] comp metabolic panel on 2019-12-04 Albumin [Mass/Vol] 4.5 3.9-4.9 g/dL Normal 12-04-2019 [facility] (01444) ALP [Catalytic 55 38-113 U/L Normal 12-04-2019 [facility] activity/Vol] [place] and (17499) ALT [Catalytic 22 10-54 U/L Normal 12-04-2019 [facility] activity/Vol] [place] and (06592) Anion gap 9 9-18 mmol/L Normal 12-04-2019 [facility] [Moles/Vol] [place] (64451) AST [Catalytic 20 14-40 U/L Normal 12-04-2019 [facility] activity/Vol] [place] and (28551) Bilirubin [Mass/Vol] 0.3 0.2-1.3 mg/dL Normal 0 [facility] (17491) Calcium [Mass/Vol] 9.5 8.5-10.2 mg/dL Normal 12-04-2019 [facility] (39073) Chloride [Moles/Vol] 102 97-105 mmol/L Normal 0 [facility] (50635) CO2 [Moles/Vol] 29 22-30 mmol/L Normal 12-04-2019 [facility] (24889) Creatinine 0.86 0.73-1.22 mg/dL Normal 12-04-2019 [facility] [Mass/Vol] [place] (35691) eGFR- Amer. >60 Normal 12-04-2019 [facility] (79556) GFR/1.73 sq M >60 mL/min/{1.73_m Normal 12-04-2019 [facility] predicted among 2} [facility] (72594) non-blacks MDRD (S/P/Bld) [Vol rate/Area] Comment: Result [...] Glucose [Mass/Vol] 107 74-99 mg/dL High 12-04-2019 [facility] (26888) Comment: Result Comment: The [place] Diabetes Association (ADA) provides guidance for cutoff [...] for diagnosis of diabetes. Reference: Standards of [facility] Care in Diabetes 2016, [place] Diabetes Association. Diabetes Care. 2016.39(Suppl 1). Potassium [Moles/Vol] 4.2 3.7-5.1 mmol/L Normal 12-04-19 20 [facility] (41612) Protein [Mass/Vol] 7.0 6.3-8.0 g/dL Normal 12-04-2019 [facility] (72907) Sodium [Moles/Vol] 140 136-144 mmol/L Normal 12-04-2019 [facility] (61255) Urea nitrogen [Mass/Vol] 18 9-24 mg/dL Normal 12-03 [facility] (69663) cnpn on 2019-12-04 CNPN Telephone (AGSPHWG) Normal 12-04-2019 [place] KO Viera ( ) 1995 Medical Date Time Provider Department Center 12/04/19 SAMEER CUELLO [facility]SP[facility] (09553) During your visit today, we recorded the following informati on about you: Marta Daugherty 12/04/2019 10:30 AM Signed TRIED TO REACH OUT TO PATIENT TO ATIF Manzo WITH DR. CUELLO A NEW PATIENT IN [place] AND ANSWER NEW PATIE NT QUESTIONS. AT [...] 2019-12-04 Absolute nRBC <0.01 <0.01 Normal 12-04-[address] [facility] (27622) Erythrocyte distribution 12.5 11.5-15.0 % Normal 12-03 [facility] width (RBC) [Ratio] [place] (67413) Hematocrit (Bld) [Volume 46.1 39.0-51.0 % Normal 12-03 [facility] fraction] [place] (91205) Hemoglobin (Bld) 16.2 13.0-17.0 g/dL Normal 12-04-2019 [facility] [Mass/Vol] [place] (38722) MCH (RBC) [Entitic mass] 28.5 26.0-34.0 pG Normal 12-03 [facility] (12053) MCHC (RBC) [Mass/Vol] 35.1 30.5-36.0 g/dL Normal 12-04-19 [facility] (25189) MCV (RBC) [Entitic vol] 81.0 80.0-100.0 fL Normal 12-03 [facility] (44979) Platelet mean volume 8.6 9.0-12.7 fL Low 0 [facility] (Bld) [Entitic vol] [place] (78663) Platelets (Bld) [#/Vol] 204 150-400 k/uL Normal 2019 [facility] (81501) RBC (Bld) [#/Vol] 5.69 4.20-6.00 m/uL Normal 12-04-2019 [facility] (24875) WBC (Bld) [#/Vol] 5.88 3.70-11.00 k/uL Normal 12-04-2019 [facility] (50529) progress on 2019-11 PROGRESS HNO ID: [id number] Normal 11-29-2019 [facility] Author: Franco Cordoba [place] ([id number]) Service: ? Author Type: Physician Type: Progress [...] low back pain Has not responded to career advisor with PT; will refer t o Pain [...] Histories in dependently gathered by the clinical support architect and the remaining scr ibed note accurately describes my personal service to the patient. Franco Cordoba MD The documentation for this note was completed by Elaine teixeira MA acting as scribe for Franco Cordoba MD. November 29, 2019 4:15 PM. Elaine catalan on 2019-11-28 CNPN Telephone (FAMPWS) Normal 11-28-2019 [place] KO Bazan ([id number]) 1995 Kitty [place] Date Time Provider Department (00162) 11/28/19 FRANCO CORDOBA During your visit today, [...] to call twice if he doesn 't slate picker the first time due to service. [...] on 2019-10-08 ALAYNA Telephone (FAMPWS) Normal 10-08-2019 [place] KO Bazan ([id number]) 1995 [facility] Date Time Provider Department (55495) 10/08/19 JENNIFER CHASE) SUSAN During your visit today, we [...] trying for 2 yea rs. Jennifer Addisonlogar, WILDLIFE MANAGEMENT PROFESSOR.PRODUCT DEVELOPMENT ASSISTANT 10/10/2019 11:00 AM Signed I have placed consult for infertility. I would have him see them for this as I do not know all the testing they do for this. Thanks, Jennifer Addisonlogar, WILDLIFE MANAGEMENT PROFESSOR.DEVAN Alva, MIKA, SENIOR ORACLE DATABASE ADMINISTRATOR 10/10/2019 11:04 AM Signed Spoke with pt [...] Diagnosis:Infertility counseling [Z31.69] Order(s):CONSULT TO INFERTILITY CLINIC [[id number]] Order #: [id number]: 1 FUTURE Prescriptions as of 10/08/2019 Sig: [...] ALVA LPN on 10/10/19 cnpn on 2019-08-20 [facility] Telephone (FAMPWS) Normal 08-20-2019 [place] KO Bazan ([id number]) 1995 [place] Date Time Provider Department (84716) 08/20/19 FRANCO CORDOBA During your visit today, [...] the status. Please advise patient . PH: [phone]. Melissa Cordoba MD 08/21/2019 10:53 AM Signed [...] and he w raquel jackson faxed to [phone] [facility]. Melissa Hu MA 08/21/2019 12:32 PM Signed [...] 08/21/19 progress on 2019-04 PROGRESS HNO ID: [id number] Normal 05-03-2019 [facility] Author: Darshana Ramos) [place] ([id number]) Service: ? Author Type: Physician Project Management Manager Type: Progress Notes Filed: 05/03/2019 5:34 PM [...] fusion C6-7, chronic neck pain - Fibromyalgia [facility] - Obesity - SLEEP DISTURBANCE [...] Discussed contagiousness of the flu. May use fmhe-iti-mpdobn r cough cold medications as well as ibuprofen as needed. Follow-up if not improving over the next week. Patient is agreeable. 2. Cough - ICD9: 786.2, ICD10: R05 - INFLUENZA AANDB MOLECULAR (POC) Darshana Evangelista PA-C PROGRESS HNO ID: [id number] Normal 05-03-2019 [facility] Author: Semaj (Joseluis.Fibrous Plasterer) KILEY Feliciano.[facility] ([id number]) Service: ? Author Type: Nurse Practitioner Type: [...] fusion C6-7, chronic neck pain - Fibromyalgia [facility] - Obesity - SLEEP DISTURBANCE [...] without being seen by provider. Semaj Feliciano DNP.PRODUCT DEVELOPMENT ASSISTANT This note was completed with Rad[employer] dictation software. Note was reviewed for accuracy. There may be minor misspellings or gr ammar miscues with [employer] Dictation. [place] [id number] cnov on 2019-05-03 CNOV Office Visit (UCWSTR) Normal 05-03-19 [place] KO Bazan ([id number]) 1995 M [place] Date Time Provider Department (77811) 1/30/20 4:30 PM DARSHANA EVANGELISTA) UCWSTR During [...] fusion C6-7, chronic neck pain - Fibromyalgia [facility] - Obesity - SLEEP DISTURBANCE [...] B is positive. He is in the [facility] w for Tamiflu. He does have a history of asthma and is a smoker. Given a prescripti on. Discussed contagiousness of the flu. May use wyqd-uni-scbv ter cough cold medications as well as ibuprofen as needed. Follow-up if not improving ov er the next week. Patient is agreeable. 2. Cough - ICD9: 786.2, ICD10: R05 - INFLUENZA AANDB MOLECULAR (POC) Darshana Evangelista PA-C Referring Provider: SELF [[id number]] Allergies As [...] Visit Diagnosis:Cough [R05] Order(s):INFLUENZA AANDB MOLECULAR (POC) [[id number]] Order # : [id number]. #:[id number] oseltamivir (TAMIFLU) 75 mg capsuleTake 1 capsule [...] CNOV Office Visit (FAMPWS) Normal 05-03-19 20 [place] [facility] KO DOLL ([id number]) 1995 [place] Date Time Provider Department (02469) 05/03/19 3:20 PM SEMAJ FELICIANO (JOSELUIS.DEVAN) MERIPWS During your visit today, we recorded the following informati on about you: Temperature Pulse Respiration Blood pressure 99.3 degrees 104/minute 14/minute 126/76 Weight 109.8 kg Semaj Feliciano DNP.CNP, WILDLIFE MANAGEMENT PROFESSOR.DEVAN 05/03/2019 4:17 PM Signed Chief Complaint Patient [...] fusion C6-7, chronic neck pain - Fibromyalgia [facility] - Obesity - SLEEP DISTURBANCE [...] without being seen by provider. Semaj Feliciano DNP.PRODUCT DEVELOPMENT ASSISTANT This note was completed with [employer] software. Note was reviewed for accuracy. There may be minor misspellings or gramm ar miscues with Radionomy Dictation. [place] [address] Referring Provider: FRANCO CORDOBA [[id number]] Allergies As of Date: 05/03/2019 Noted Allergy Reaction AUGMENTIN (AMOXICILLIN-POT CLAVUL*01/14/2005 2 - Rash KEFLEX (CEPHALEXIN) 04/14/2006 2 - Rash Date Reviewed: 05/03/2019 Reviewed by: Francie Carroll Rehanger - Fully Assessed Reason for Visit: Headache [...] sciatic*09/25/2015 Encounter Status:Closed by SEMAJ FELICIANO DNP PRODUCT DEVELOPMENT ASSISTANT on 05/03/19 progress on 2018-12 PROGRESS HNO ID: [id number] Normal 12-28-2018 [facility] Author: Peace Huynh) [place] ([id number]) Service: ? Author Type: Nurse Practitioner Type: Progress Notes Filed: 12/28/2018 5:37 PM Note Text: This note was created using Certainriter. Subjective Ko Doll is a 23 year [...] fusion C6-7, chronic neck pain - Fibromyalgia [facility] - Obesity - SLEEP DISTURBANCE [...] CNOV Office Visit (UCWSTR) Normal 12-29-19 19 [place] KO Bazan ([id number]) 1995 [place] Date Time Provider Department (11921) 12/28/18 5:00 PM PEACE DAMON (DEVAN) UCWSTR During your visit today, we recorded the following informati on about you: Temperature Pulse Respiration Blood pressure 99.7 degrees 97/minute 16/minute 122/86 Weight 108.5 kg Peace Damon APRN.CNP 12/28/2018 5:37 PM Signed This note was created using Certainriter. Subjective Ko Doll is a 23 year [...] fusion C6-7, chronic neck pain - Fibromyalgia [facility] - Obesity - SLEEP DISTURBANCE [...] is a safe and effective decongestant 3. [place] Nas[place] may offer relief of nasal and head [...] than bett er Referring Provider: KANDIS GOLDMAN [[id number]] Allergies As of Date: 12/28/2018 Noted Allergy [...] effusion, bilateral [H65.93] Order(s):RAPID STREP TEST B/O [[id number]] Order #: [id number] Prescriptions as of 12/28/2018 Sig: CPAP Initiate [...] is a safe and effective decongestant 3. [place] Nasal [place] may offer relief of nasal and head [...] emergency department summary on 2017-05-16 EMERGENCY DEPARTMENT [facility] Normal 0 05-16-2017 [facility] SUMMARY EMERGENCY DEPARTMENT [facility] SUMMARY NAME NUMBER SEX ([id number]) AGE ADMIT DISC TYPE MED.RECORD# SHARMILA Moreno [id number] M 21 05/04/17 05/04/17 [place] [id number] ROOM:ER-I DATE OF :1995 PHYSICIAN NO.:[id number] PHYSICIAN NAME:JOVANA Bui M.D. PHYSICIAN:NO DOCTOR ON [...] Alberto Bui MD TD: 16:20 JOB #: [id number] Electronically signed by: JOVANA Bui M.D. 05/16/17 07:11 Transcribed by: am 05/05/2017 13:54 ELECTRONICALLY SIGNED BY: JOVANA Bui M.D. 05/16/17 07:11 Encounters Date Type Reason Provider Location 05-04-2017 - Emergency MARIO ALBERTO [facility] Rolando ram 05-04-2017 department patient HAO DOCTOR ON NO [facility] Hospital visit MARIO ALBERTO BUI DOCTOR ([id number]) ON NO 11-29-2019 - Patient encounter Chronic low back Franco Pinedo [facility] 11-29-2019 procedure pain [place] Comment: Fatigue, unspecified type (P rimary Dx); Chronic midline low back keshawn n, unspecified whether sciatica present; Weight gain 11-29-2019 - Telemedicine Franco Pinedo [place] 11-29-[address] [facility] patient 12-05-2019 - Telephone Acquired Franco Pinedo [facility] Medicine 12-05-2019 encounter hypothyroidism [facility] [place] Comment: Results 12-04-2019 - 12-04-2019 Telephone encounter Sameer Shipman [facility] [place] Comment: New Patient (OTILIA) 11-28-2019 - Telephone encounter Fatigue Franco Pinedo [facility] 11-28-2019 [place] Comment: Fatigue Plan of Treatment Plan Description Date Location DTAP,TDAP,TD (6 - Td) DTAP,TDAP,TD (6 - Td) 06-24-2021 - [facility] 06-24-2021 (12473) ANNUAL PCP TEAM CHRONIC ANNUAL PCP TEAM CHRONIC 11-28-2020 - [facility] DISEASE VISIT DISEASE VISIT 11-28-2020 (74770) ANNUAL PCP TEAM CHRONIC ANNUAL PCP TEAM CHRONIC 05-03-2020 [facility] DISEASE VISIT DISEASE VISIT (14170) INFLUENZA (#1) INFLUENZA (#1) 2019 - [facility] 12-04-2019 (79250) ADULT PREVNAR-13 ADULT PREVNAR-13 2012 - [facility] ic 2012 (86886) TWO PNEUMOVAX 5 YEARS TWO PNEUMOVAX 5 YEARS 2012 - [facility] APART PRIOR TO AGE 65 APART PRIOR TO AGE 65 2012 (441 95) (#1) (#1) HEPATITIS C SCREENING HEPATITIS C SCREENING 10-31-2011 - [facility] 10-31-2011 (68800) HIV SCREENING HIV SCREENING 10-31-2011 - [facility] 10-31-2011 (81362) SPIROMETRY SPIROMETRY 10-31-2011 - [facility] 10-31-2011 (35978) HPV VACCINE (1 - Male HPV VACCINE (1 - Male 2004 - [facility] 2-dose series) 2-dose series) 2004 (69925) CBC CBC Lab Routine Fatigue, 11-28-2020 [facility] unspecified type Weight (52947) gain 1 Occurrences starting 11/29/2019 until 11/28/2020 Comment: 1 Occurrences starting 11/28 until 11/28/2020 COMP METABOLIC PANEL COMP METABOLIC PANEL Lab 11-28-2020 [facility] (10169) Routine Fatigue, unspecified type Weight gain 1 Occurrences starting 11/29/2019 until 11/28/2020 Comment: 1 Occurrences starting 11/28 until 11/28/2020 HGB A1C HGB A1C Lab Routine Fatigue, unspecified 021 [facility] (04648) type Weight gain 1 Occurrences starting 11/29/2019 until 11/28/2020 Comment: 1 Occurrences starting 11/28 until 11/28/2020 T4 FREE/FREE THYROX T4 FREE/FREE THYROX Lab 12-05-2020 [facility] (65950) Routine Hypothyroidism, acquired 1 Occurrences starting 12/06/2019 until 12/05/2020 Comment: 1 Occurrences starting 12/05 until 12/05/2020 TSH BLD TSH BLD Lab Routine Fatigue, unspecified 021 [facility] (28410) type Weight gain 1 Occurrences starting 11/29/2019 until 11/28/2020 Comment: 1 Occurrences starting 11/28 until 11/28/2020 TSH (FOR REMOTE [facility] TSH (FOR REMOTE [facility] USE) Lab 12-05-2020 [facility] USE) Routine Hypothyroidism, (81875) acquired 1 Occurrences starting 12/06/2019 until 12/05/2020 Comment: 1 Occurrences starting 12/05 until 12/05/2020 no information [facility] (16063) Immunizations Vaccine Notes Status Date Location DTaP (Age<7) diphtheria, tetanus (completed) 01-06-1999 - [facility] toxoids and acellular 01-06-1999 (49228 ) pertussis vaccine DTaP (Age<7) diphtheria, tetanus (completed) 11-20-1997 - [facility] toxoids and acellular 11-20-1997 (91601 ) pertussis vaccine DTaP (Age<7) diphtheria, tetanus (completed) 04-26-1996 - [facility] toxoids and acellular 04-26-1996 (40765 ) pertussis vaccine DTaP (Age<7) diphtheria, tetanus (completed) 04-22-1994 - [facility] toxoids and acellular 04-22-1994 (08178 ) pertussis vaccine DTaP (Age<7) diphtheria, tetanus (completed) 01-14-1994 - [facility] toxoids and acellular 01-14-1994 (78204 ) pertussis vaccine HIB - 3 Dose Schedule haemophilus (completed) 04-26-1996 - [facility] influenzae type b 04-26-1996 (99576) vaccine, conjugate unspecified formulation HIB - 3 Dose Schedule haemophilus (completed) 05-02-1994 - [facility] influenzae type b 05-02-1994 (88175) vaccine, conjugate unspecified formulation Hepatitis B Peds/Adol hepatitis B vaccine, (completed) 04-26-1996 - [facility] pediatric or 04-26-1996 (51457) pediatric/adolescent dosage Hepatitis B Peds/Adol hepatitis B vaccine, (completed) 01-14-1994 - [facility] pediatric or 01-14-1994 (90907) pediatric/adolescent dosage Hepatitis B Peds/Adol hepatitis B vaccine, (completed) 1993 - [facility] pediatric or 1993 (47346) pediatric/adolescent dosage Influenza Seasonal Inj influenza, (completed) 02-02-2018 - [facility] Quadrivalent Age 3+ injectable, 02-02-2018 (56503) quadrivalent, contains preservative MMR measles, mumps and (completed) 01-06-1999 - [facility] rubella virus vaccine 01-06-1999 (88816 ) MMR measles, mumps and (completed) 04-26-1996 - [facility] rubella virus vaccine 04-26-1996 (87941 ) Meningococcal Conj IM Meningococcal, MCV4, (completed) 06-25-2011 - [facility] Unspec unspecified conjugate 06-25-2011 (51447 ) formulation(groups A, C, Y and W-135) Tdap (Age 7+) tetanus toxoid, (completed) 06-25-2011 - [facility] [facility] reduced diphtheria 06-25-2011 ([id number]) toxoid, and acellular pertussis vaccine, adsorbed OPV trivalent poliovirus (completed) 01-06-1999 - [facility] vaccine, live, oral 01-06-1999 ([id number]) OPV trivalent poliovirus (completed) 04-26-1996 - [facility] vaccine, live, oral 04-26-1996 ([id number]) OPV trivalent poliovirus (completed) 04-22-1994 - [facility] vaccine, live, oral 04-22-1994 ([id number]) OPV trivalent poliovirus (completed) 01-14-1994 - [facility] vaccine, live, oral 01-14-1994 ([id number]) Payers Payer Name Policy Number Location ANTHEM [id number] [facility] ([id number]) [facility] [id number] [facility] ([id number] [phone]) The following information is from the original human readable contentNo Payer Records FoundNo Payer Records FoundNo Payer Records FoundNo Payer Records FoundNo Payer Records Found Social History Type Social History Date Location Description Tobacco use and exposure Current user 05-03-2019 - [facility] 11-29-2019 ([id number]) History SDOH Alcohol 5 11-29-2019 - [facility] linic Frequency 11-29-2019 ([id number]) History of tobacco use Chews Tobacco [facility] ([id number]) Alcohol intake Current non-drinker of 05-03-2019 - [facility] alcohol (finding) 11-29-2019 (09585) Tobacco Comment smokes 1 pack every 3 03-04-2014 - [facility] months 03-04-2014 ([id number]) Sex Assigned At Not on file [facility] ([id number]) Exposure to SARS-CoV-2 Not sure [facility] (event) (66501) Tobacco smoking status Former smoker 05-03-2019 - [facility] NHIS 11-29-2019 ([id number]) History SDOH Alcohol Std 2 11-29-2019 - [facility] Drinks 11-29-2019 ([id number]) History SDOH Alcohol 4 11-29-2019 - [facility] linic Binge 11-29-2019 (05669) History SDOH Social 1 11-29-2019 - [facility] [employer] 11-29-2019 (71430) History SDOH Social 3 11-29-2019 - [facility] Meetings 11-29-2019 ([id number]) History SDOH Social 8 11-29-2019 - [facility] Living 11-29-2019 (28981) History SDOH Physical 13 11-29-2019 - [facility] Activity MPS 11-29-2019 ([id number]) History SDOH Education 14 11-29-2019 - [facility] 11-29-2019 ([id number]) The following information is from the original [...] PATIENT VISIT LEVEL 5 Franco Pinedo [address] [place] [address] History of Present Illness Franco Cordoba - [...] fusion C6-7, chronic neck pain ? Fibromyalgia [facility] ? Obesity ? SLEEP DISTURBANCE [...] low back pain Has not responded to career advisor with PT; will refer to Pain Management [...] Past Histories independently gathered by the clinical support architect and the remaining scribed note accurately describes my personal service to the patient. Franco Cordoba MD The documentation for this note was completed by Elaine Hu MA acting as scribe for Franco Cordoba MD. November 29, 2019 4:15 PM. Elaine [...] BE BASED ON THE PRIMARY CLINICAL RECORDS. [employer] [facility] provides no warranty or guarantee of the accuracy or completeness of information in this document. UNRECOGNIZED CONTENT PROVIDED BELOW FOR UNRECOGNIZED SECTION No Status Records FoundNo Status Records FoundNo Status Records Found UNRECOGNIZED CONTENT PROVIDED BELOW FOR UNRECOGNIZED SECTION INFORMATION SOURCE DATE CREATED AUTHOR AUTHOR'S ORGANIZATIO N 09/26/2017 [facility] DATE CREATED AUTHOR AUTHOR'S ORGANIZATIO N 12/04/2019 [facility] DATE CREATED AUTHOR AUTHOR'S ORGANIZATIO N 12/06/2019 [facility] UNRECOGNIZED CONTENT PROVIDED BELOW FOR UNRECOGNIZED SECTION Source Comments In the event this information is protected by the Federal Confidentiality of Alcohol and Drug Abuse Patient Records regulations: The Federal rules restrict any use of the information to criminally investigate or prosecute any alcohol or drug abuse patient.[facility] the event this information is protected by the Federal Confidentiality of Alcohol and Drug Abuse Patient Records regulations: The Federal rules restrict any use of the information to criminally investigate or prosecute any alcohol or drug abuse patient.[facility] the event this information is protected by the Federal Confidentiality of Alcohol and Drug Abuse Patient Records regulations: The Federal rules restrict any use of the information to criminally investigate or prosecute any alcohol or drug abuse patient.[facility] the event this information is protected by the Federal Confidentiality of Alcohol and Drug Abuse Patient Records regulations: The Federal rules restrict any use of the information to criminally investigate or prosecute any alcohol or drug abuse patient.[facility] UNRECOGNIZED CONTENT PROVIDED BELOW FOR UNRECOGNIZED SECTION Reason for Visit Reason Onset Date Comments Fatigue 11/28/2019 Reason Comments Fatigue Status Reason Specialty Diagnoses / Referred By Referred To Procedures Contact Contact Authorized Patient Cleared Family Practice Diagnoses Fatigue x 3 Weeks. Please Call Pt Twice, may not have good service Lucas Cordoba - INN Insurance / FAMILY Procedures PROVIDER PHONE CALL Franco Pinedo [facility] [address] [place] [address] [place] [id number] Phone: Fax: Reason Onset Date Comments New Patient 12/04/2019 [place] Reason Onset Date Comments Results 12/05/2019 UNRECOGNIZED [...] PCP to call twice if he doesn't slate picker the first time due to service. documented in this encounterTelephone Encounter - Marta Daugherty - 12/04/2019 10:26 AM EDTTRIED TO REACH OUT TO PATIENT TO SCHEDULE WITH DR. CUELLO A NEW PATIENT IN [place] AND ANSWER NEW PATIENT QUESTIONS. AT THIS TIME THE MAIL BOX IS FULL AND UNABLE TO LEAVE MESSAGE. Marta Daugherty documented in this encounterTelephone Encounter - Elaine Hu MA - 12/06/2019 10:52 AM EDTTried calling pt, but unable to LM due to VM being full. Sent Favoe message with all info below. Notified pt [...] PM EDT Patient reviewed lab results on [place]. Asking pcp to review and advise on [...] 4.200 uU/mL 5.040 (H) documented in this encounter
== END 2019-08-21 20:08 | disposition home or self-care (01) ==
LOC: ED 19:32
PROVIDERS: Emergency Provider Emergency Medicine; PCP Family Medicine
DX: R07.89 Other chest pain (principal); M79.7 Fibromyalgia
CPT/HCPCS: 71045; 80048; 84484; 85025; 93005; 99285; A4216

== ENCOUNTER 2021-01-07 19:30 | Emergency (ER) | payer BC, SELFPAY ==
[2021-01-07 19:31] VITALS: BP 130/84; PULSE 93; RESP 20; TEMP 36.5; O2SAT 99; BMI 36.9
--- NOTE | 2021-01-07 21:24 | CT_ITS ---
EXAM: CT Angiography Chest Without and With Intravenous Contrast CLINICAL INDICATION: 25 years old, Male; dyspnea -- recent surgery r/o PE TECHNIQUE: Helically acquired angiography images were obtained of the chest without and with intravenous contrast. This CT exam was performed using one or more of the following dose reduction techniques: automated exposure control, adjustment of the mA and/or kV according to patient size, and/or use of iterative reconstruction technique. This report was created using [employer] report generation technology. MIP reconstructed images were created and reviewed. CONTRAST: IV 100mL Isovue-370 COMPARISON: None. FINDINGS: Pulmonary arteries: Unremarkable. Normal in caliber. No pulmonary embolism. Aorta: Unremarkable. Normal in caliber. No evidence of dissection. Great vessels of aortic arch: Unremarkable. Normal in caliber. No evidence of dissection. Lungs and pleural spaces: Unremarkable. No mass. No consolidation or edema. No pleural effusion or thickening. No pneumothorax. Heart: Unremarkable. Heart size is normal. No pericardial effusion. No signs of right heart strain, ratio of right ventricle to left ventricle measures less than 1. Mediastinum: Unremarkable. No mediastinal or hilar adenopathy. Esophagus is unremarkable. No hiatal hernia. Thyroid: Unremarkable. No thyroid lesions. Bones/joints: Unremarkable. No suspicious lytic or blastic abnormality. CT/CTA Chest W/WO Contrast IMPRESSION: No pulmonary embolism. ASSESSMENT: INCIDENTAL report - The findings in this report are either known or are not significant. Electronically Signed: Mike Alvarado MD at 22:38 EDT Tel , Service support ,
--- NOTE | 2021-01-07 21:25 | EKG12_ITS ---
Test Reason : SOB Blood Pressure : / mmHG Vent. Rate : 080 BPM Atrial Rate : 080 BPM P-R Int : 162 ms QRS Dur : 090 ms QT Int : 378 ms P-R-T Axes : 025 023 037 degrees QTc Int : 435 ms Normal sinus rhythm with sinus arrhythmia Normal ECG Confirmed by RAPHAEL ZHOU, BRIGID ([id number]), offline editor BELINDA POWELL ([id number]) on 01/12/2021 10:48:21 AM Referred By: GABBI Confirmed By:ANISH LIM MD
--- NOTE | 2021-01-07 21:31 | EDS_ITS ---
HPI History of Present Illness Chief Complaint: Shortness of Breath Informant: patient Narrative Narrative: Patient sent in here by his PCP Dr. Zavala to rule out PE. I spoke with his physician prior to his arrival. Patient status post right peroneal tendon repair with plantar fasciitis back on November 11 [address] Pipe Freitas in [place]. He denies leg pain or swelling. Last 5 days increasing dyspnea worse with exertion. No history of PE. Denies asthma COPD or tobacco. Denies cough or fevers. Reported he is having trouble with dyspnea in the office. Patient has been in the waiting room, reports since in the waiting room has been less short of breath with rest. Denies chest or abdominal pain. PE Risk Factors: Positive for Recent surgery Prior similar symptoms: No PFSH PFSH Home Medications ibuprofen 800 mg PO TID PRN PRN #20 tab 08/21/19 [Rx Last Taken Unknown] levothyroxine 100 mcg DAILY 01/07/21 [History Last Taken Unknown] Allergy/AdvReac Type Severity Reaction Status Date / Time amoxicillin trihydrate Allergy Rash Verified 01/07/21 19:34 [From Augmentin] cephalexin monohydrate Allergy Rash Verified 01/07/21 19:34 [From Keflex] potassium clavulanate Allergy Rash Verified 01/07/21 19:34 [From Augmentin] Social History Smoking Status: Current every day smoker tobacco type: cigarettes ROS ROS ED Constitutional Constitutional ED: Denies chills, fever(s) or sweats Eyes Eyes: Denies change in vision ENT ENT ED: Denies dysphagia or sore throat Cardiovascular Cardiovascular: Denies chest pain, leg edema, palpitations or racing heartbeat Respiratory/Chest Respiratory/Chest: Reports dyspnea and dyspnea on exertion; Denies cough Gastrointestinal Gastrointestinal: Denies abdominal pain, diarrhea, nausea or vomiting Genitourinary Genitourinary ED: Denies dysuria, hematuria or urinary frequency Musculoskeletal Musculoskeletal: Denies back pain, extremity pain or neck pain Integumentary Denies rash or wounds Neurologic Neurologic: Denies headache(s), paresthesias or weakness EXAM Physical Exam Const Vital Signs: 01/07/21 19:31 01/07/21 22:10 01/07/21 22:14 Temperature 97.7 F L 98.7 F Temperature Source Temporal Temporal Pulse Rate 93 84 Respiratory Rate 20 H 16 Respiratory Effort Short of Breath Blood Pressure 130/84 H 141/75 H Blood Pressure Mean 99 97 Pulse Ox 99 99 Oxygen Delivery Method Room Air Room Air Room Air 01/07/21 22:57 Temperature Temperature Source Pulse Rate 78 Respiratory Rate 19 H Respiratory Effort Blood Pressure 142/88 H Blood Pressure Mean 106 Pulse Ox 97 Oxygen Delivery Method Room Air Positive well nourished and well developed General Appearance ED: well developed and NAD HEENT Reports moist mucous membranes normocephalic and atraumatic Eyes PERRL, EOMs intact bilaterally and conjunctivae normal General Eye ED: Yes normal appearance of both eyes Neck no lymphadenopathy and supple General: Negative for tenderness Chest Wall Chest: Negative for tenderness Resp normal respiratory effort and normal air movement Effort and Inspection: symmetric chest movement; Negative for respiratory distress Cardio regular rate, regular rhythm and no murmurs Peripheral Pulses: pulses 2+ throughout GI normal to inspection, nondistended, normoactive bowel sounds and non-tender Palpation: Negative for guarding or rebound tenderness present Back/Spine no CVA tenderness and no thoracic nor lumbar tenderness Extremity normal to inspection Extremity Narrative: Right lower extremity walking boot. There is no medial thigh tenderness. General Extremety ED: Negative for edema General Extremity: Negative for edema Neuro oriented x3 and no sensory deficits noted Sensorium / Orientation: awake and alert Skin no rashes or lesions noted MDM [facility] Lab Data Attestation: I reviewed the patient's lab results. Lab results narrative: Patient sent in for PE rule out. Vitals are stable is not hypoxic or tachypneic. Basic labs were normal. EKG normal. CT scan chest was negative for PE. Patient updated on the findings. He has no cough or fevers. Discussed with patient he is having dyspnea for 5 days discussed and offered Covid testing to be sent out however he declines. He will follow-up with his PCP. All questions were answered. Patient is being discharged under pandemic conditions under declared global, national and state disaster activation, with limited medical resources. Patient and community understands this. Results discussed in layman's terms to the patient satisfaction. All questions answered in layman's terms. Patient understands importance of follow-up care as directed. Patient has been instructed to return to the ED immediately if new symptoms, problems, or questions occur. We mutually agree with the plan of disposition. The patient understand that they may call or return with any questions or concerns at any time. Labs: Laboratory Results - last 24 hr 01/07/21 01/07/21 21:58 21:58 WBC 6.7 RBC 5.13 Hgb 14.5 Hct 42.1 MCV 82.1 MCH 28.3 MCHC 34.4 RDW Std Deviation 36.6 RDW Coeff of Khang 12.3 Plt Count 236 MPV 9.0 Immature Gran % (Auto) 0.300 Neut % (Auto) 46.6 L Lymph % (Auto) 41.8 H [place] % (Auto) 9.1 Eos % (Auto) 1.9 Baso % (Auto) 0.3 Absolute Neuts (auto) 3.1 Absolute Lymphs (auto) 2.79 Nucleated RBC % 0 Sodium 142 Potassium 3.8 Chloride 104 Carbon Dioxide 32.0 Anion Gap 6 BUN 11 Creatinine 0.93 Estim Creat Clear Calc 127.07 Est GFR (MDRD) Af Amer 125 Est GFR (MDRD) Non-Af 103 BUN/Creatinine Ratio 11.8 Glucose 100 Calcium 9.3 Radiography Diagnostic Testing: Clinical Impression(s) from Imaging Studies Chest CTA 01/07/21 21:24 IMPRESSION: No pulmonary embolism. ASSESSMENT: INCIDENTAL report - The findings in this report are either known or are not significant. Electronically Signed: Mike Alvarado MD at 22:38 EDT Tel , Service support , EKG Initial EKG: Attestation: I personally reviewed and interpreted this EKG as follows: Comments: Sinus rate of 80, no ST or T wave changes. Discharge Plan Triage Chief Complaint: Shortness of Breath ED Provider: Amilcar Wright Dx/Rx/DC Orders Clinical Impression: Dyspnea, Post-operative state Instructions: ED Dyspnea Prescriptions: No Action ibuprofen 800 MG tablet 800 mg PO TID PRN PRN (Reason: Pain Or Fever) Qty: 20 RF: 0 levothyroxine 100 mcg DAILY RF: 0 Primary Care Provider: Velasquez Zavala Referrals: Velasquez Zavala MD [Primary Care Provider] - 3-5 Days Activity Restrictions/Additional Instructions: CT chest was negative for PE or any lung process. Follow-up with your doctor. Disposition Disposition: Home, Self Care Discharge Date/Time: 01/07/21 23:00
[2021-01-07 22:06] LABS: Absolute Lymphocyte Count 2.79 X10^3/uL (0.83-4.51); Absolute Neutrophil Count 3.1 X10^3/uL (2.0-7.7); Basophil# 0.02 X10^3/uL; Basophil% 0.3 % (0-1); Eosinophil# 0.13 X10^3/uL; Eosinophils% 1.9 % (0-5); Hematocrit 42.1 % (40-54); Hemoglobin 14.5 g/dL (13.0-16.5); Lymphocyte # 2.79 X10^3/ul (0.83-4.51); Lymphocyte % 41.8 % (19-41); Mean Corp Hgb Conc 34.4 g/dL (32-36); Mean Corpuscular Hgb 28.3 pg (27.0-32.0); Mean Corpuscular Volume 82.1 fL (80-94); Monocyte# 0.61 X10^3/uL; Monocyte% 9.1 % (0-10); NRBC Flagged by Analyzer 0 % (0-5); Neutrophil # 3.11 X10^3/uL (2.7-7.7); Neutrophil % 46.6 % (47-70); Platelet Count 236 K/mm3 (150-450); RBC Distribution Width CV 12.3 % (11.6-14.6); RBC Distribution Width SD 36.6 fl (35.1-43.9); Red Blood Count 5.13 M/mm3 (4.6-6.2); White Blood Count 6.7 K/mm3 (4.4-11.0)
[2021-01-07 22:10] VITALS: BP 141/75; PULSE 84; RESP 16; TEMP 37.1; O2SAT 99
[2021-01-07 22:28] LABS: Anion Gap 6 (5-15); BUN 11 mg/dL (7-18); BUN/Creat Ratio 11.8 RATIO (10-20); Calcium,Total 9.3 mg/dL (8.5-10.1); Chloride 104 mmol/L (98-107); Creatinine, Serum 0.93 mg/dL (0.70-1.30); EST Glomerular Filtration Rate 103 mL/min (>60); Est Glom Filt Rate - Afr Amer 125 mL/min (>60); Estimated Creatinine Clearance 127.07 ml/min; Glucose 100 mg/dL (74-106); Potassium 3.8 mmol/L (3.5-5.1); Sodium Level 142 mmol/L (136-145)
[2021-01-07 22:57] VITALS: BP 142/88; PULSE 78; RESP 19; O2SAT 97
== END 2021-01-07 23:00 | disposition home or self-care (01) ==
PROVIDERS: Emergency Provider Emergency Medicine; PCP Family Medicine
DX: R06.00 Dyspnea, unspecified (principal); R06.02 Shortness of breath; F17.210 Nicotine dependence, cigarettes, uncomplicated
CPT/HCPCS: 71275; 80048; 85025; 93005; 99283; J7040; Q9967

== ENCOUNTER → 2025-02-02 | Outpatient (CLI) | payer BC, SELFPAY ==
[2025-02-02 12:25] LABS: Anion Gap 8 (5-15); BUN 12 mg/dL (4-19); BUN/Creat Ratio 14.1 RATIO (10-20); Calcium,Total 9.5 mg/dL (7.6-11.0); Carbon Dioxide 28.5 mmol/L (21.0-32.0); Chloride 102 mmol/L (98-108); Cholesterol 177 mg/dL (<=200); Glucose 88 mg/dL (70-99); Low Density Lipoprotein Calc. 114 mg/dL; Potassium 4.1 mmol/L (3.3-5.1); Triglycerides 107 mg/dL; Very Low Density Lipoprotein 21 mg/dL (5-40); cholesterol:hdl ratio screen 4.12
== END | disposition home or self-care (01) ==
PROVIDERS: PCP Family Medicine; Referring Provider Family Medicine; Visit Provider Family Medicine
DX: Z00.00 Encounter for general adult medical examination without abnormal findings (principal)
CPT/HCPCS: 36415; 80048; 80061; 84443

== ENCOUNTER → 2025-02-27 | Outpatient (CLI) | payer BC, SELFPAY ==
--- NOTE | 2025-02-27 12:44 | RAD_ITS ---
PROCEDURE: ELBOW MIN 3 VIEWS 02/27/2025 REASON FOR EXAM: PAIN TECHNIQUE: Procedure Code: RADEL Modality: DX Procedure: ELBOW MIN 3 VIEWS Laterality: Right FINDINGS: No acute fracture or dislocation. No abnormal fat pad displacement. A tiny soft tissue calcification is noted adjacent to the medial epicondyle, likely degenerative in nature. No other significant bone or joint abnormality. No focal soft tissue swelling. RAD/Elbow min 3 Views IMPRESSION: As above. Reading Location: [id number]
--- NOTE | 2025-02-27 12:44 | RAD_ITS ---
PROCEDURE: SHOULDER MIN 2 VIEWS 02/27/2025 REASON FOR EXAM: PAIN TECHNIQUE: Procedure Code: RADSH Modality: DX Procedure: SHOULDER MIN 2 VIEWS Laterality: Right FINDINGS: No acute fracture or dislocation. No significant bone or joint abnormality. No focal soft tissue swelling. RAD/Shoulder min 2 Views IMPRESSION: As above. Reading Location: [id number]
== END | disposition home or self-care (01) ==
LOC: MTRAD 12:43
PROVIDERS: PCP Family Medicine; Referring Provider Family Medicine; Visit Provider Family Medicine
DX: M25.511 Pain in right shoulder (principal); M25.521 Pain in right elbow
CPT/HCPCS: 73030; 73080